=== PATIENT | male | born 1945 | race Caucasian/White ===

== ENCOUNTER → 2019-08-13 11:49 | Outpatient (BNVA) | payer MEDICARE, SELFPAY | PROVIDERS: PCP Nurse Practitioner Family; Referring Provider Nurse Practitioner Family; Visit Provider Orthopaedic Surgery | DX: M25.561 Pain in right knee (principal); M11.262 Other chondrocalcinosis, left knee; M25.461 Effusion, right knee; M17.0 Bilateral primary osteoarthritis of knee | CPT/HCPCS: 73560; 73565 ==

== ENCOUNTER 2019-08-13 15:20 | Outpatient (CLI) | payer MEDICARE, SELFPAY ==
--- NOTE | 2019-08-13 14:45 | USCV_ITS ---
Anuj Pulliam Age: 73 Gender: M : 1945 Exam Date: 08/13/2019 15:49 Ordering Phys: Jay Fernandez DO Technologist: Sue Purvis Exam Location: [facility] [place] Indication: DVT HISTORY: DVT. PROCEDURES: Venous duplex imaging was performed in only the right lower extremity. The following venous structures were evaluated: common femoral vein, profunda vein, proximal portion of the greater saphenous vein, superficial femoral vein, and the popliteal vein. In addition, the posterior tibial and peroneal trunk were evaluated. Serial compression, augmentation maneuvers, and spectral Doppler flow evaluation were performed. FINDINGS: Normal 2-D Doppler and augmentation and compressibility throughout the lower extremity venous structures. Additional imaging through the proximal calf veins also reveals no thrombus. Limited evaluation of the greater saphenous vein is patent with no thrombus. There is a right lower extremity complex Carreon's cyst noted CONCLUSIONS No evidence of right lower extremity DVT. Bakers cyst with internal debris partially visualized measuring3.7 x 2.1cm Raymond Jeter MD (Electronically Signed) Final Date: 13 August 2019 17:11 S
== END 2019-08-13 15:21 | disposition home or self-care (01) ==
LOC: RAD 15:25
PROVIDERS: PCP Nurse Practitioner Family; Visit Provider Orthopaedic Surgery
DX: M79.661 Pain in right lower leg (principal); M71.21 Synovial cyst of popliteal space [Baker], right knee
CPT/HCPCS: 93971

== ENCOUNTER 2019-08-21 11:17 | Outpatient (CLI) | payer MEDICARE, SELFPAY ==
--- NOTE | 2019-08-21 13:45 | MR_ITS ---
WS: [id number] MRI of the right knee, 08/21/2019 Clinical Data: evaluate bakers cyst and internal derangement Comparison: None. Findings: The anterior and posterior cruciate ligaments are intact without tear. The anterior horn of the later al meniscus shows complete degeneration. The posterior horn of lateral meniscus is intact. The business center representative ior horn of the medial meniscus demonstrates a horizontal tear which is at the inferior aspect of the meniscus. The medial and lateral collateral ligaments are intact without strain or tear. There is ca rtilage loss at both the medial and lateral articular surfaces. There is a moderate amount of fluid t hroughout the knee. The quadriceps tendon and patellar tendon show no abnormalities. The patella is i ntact without displacement or chondromalacia. There is a Carreon's cyst and there is fluid which has ex travasated from this cyst. There may be a small leak or rupture. MR/MR knee RT wo con* [id number] Impression: 1. Degeneration of the anterior horn of the lateral meniscus and horizontal te ar of the posterior horn of the medial meniscus 2. Negative for anterior or posterior cruciate ligament tear. 3. Moderate amount of fluid throughout the joint space. 4. Carreon's cyst which shows minimal extravasation of fluid
== END 2019-08-21 11:18 | disposition home or self-care (01) ==
LOC: RADSHAW 11:17
PROVIDERS: PCP Nurse Practitioner Family; Visit Provider Orthopaedic Surgery
DX: M71.21 Synovial cyst of popliteal space [Baker], right knee (principal); S83.241A Other tear of medial meniscus, current injury, right knee, initial encounter; X58.XXXA Exposure to other specified factors, initial encounter
CPT/HCPCS: 73721

== ENCOUNTER 2019-09-07 08:30 | Outpatient (CLI) | payer MEDICARE, SELFPAY ==
--- NOTE | 2019-09-07 08:00 | US_ITS ---
WS: [id number] Scrotal and testicular ultrasound, 09/07/2019 Clinical Data: Bilateral hydrocele Comparison: None. Findings: The right testes measures 5.6 cm x 3.1 cm x 3.4 cm. The left testes measures 6.5 cm x 2.9 cm x 3.4 cm. There is normal bilateral blood flow with no evidence of orchitis or torsion. No masses or abnormal c alcifications are noted. Both epididymides are normal. There are large bilateral hydroceles. US/US scrotum [id number] Impression: 1. Negative testes in epididymitis. 2. Large bilateral hydroceles.
== END 2019-09-07 08:31 | disposition home or self-care (01) ==
LOC: RAD 08:34
PROVIDERS: PCP Nurse Practitioner Family; Visit Provider Urology
DX: N43.3 Hydrocele, unspecified (principal)
CPT/HCPCS: 76870; 81001

== ENCOUNTER → 2019-10-26 08:31 | Outpatient (BNVA) | payer MEDICARE, SELFPAY | PROVIDERS: PCP Nurse Practitioner Family; Visit Provider Orthopaedic Surgery | DX: M25.562 Pain in left knee (principal); M79.661 Pain in right lower leg; M11.262 Other chondrocalcinosis, left knee; M17.12 Unilateral primary osteoarthritis, left knee | CPT/HCPCS: 73562 ==

== ENCOUNTER 2020-02-14 09:44 | Inpatient (IN) | payer MEDICARE, SELFPAY ==
[2020-02-14] VITALS (10 sets, daily range): BP systolic 129–188; BP diastolic 72–93; PULSE 47–64; RESP 16–24; TEMP 36.4–37; O2SAT 91–96; BMI 40.6
--- NOTE | 2020-02-14 10:12 | CT_ITS ---
WS: [id number] CT CHEST ANGIOGRAPHY WITH REFORMATS HISTORY: dysrhythmia TECHNIQUE: Contiguous axial images are obtained through the chest during arterial injection of intrav enous contrast. Images are reconstructed to evaluate the pulmonary arteries. MIP imaging also reviewe d. All CT scans at [facility] use at least one of these dose optimization techniques: aut omated exposure control; mA and/or kV adjustment per patient size (includes targeted exams where dose is matched to clinical indication); or iterative reconstruction. CONTRAST: Omnipaque 350; 95 mL IV. DLP: 2555.55 mGy.cm COMPARISON: 09/20/2015 Adequate opacification of the pulmonary arteries. No filling defects or pulmonary emboli. Normal size aorta with mild atherosclerosis. Prior CABG. Cardiac chambers are slightly enlarged. Extensive nativ e coronary artery calcification. No mediastinal or hilar adenopathy. Benign LEFT upper lobe granuloma. Very mild interstitial thickening bilaterally in the periphery. Chr onic emphysematous changes and interstitial thickening greatest at the lung bases. Very small RIGHT p leural effusion. Mild soft tissue anasarca. Small hiatal hernia. Visualized upper abdominal structures are negative. Gallbladder is incompletely visualized and limite d by body habitus. Thoracic spondylitic changes. CT/CT angio chest PE protcl [id number] IMPRESSION: 1. No pulmonary embolism. 2. Chronic emphysema and mild chronic interstitial fibrosis. 3. No pneumonia. 4. Mild enlargement of the heart chambers and prior CABG.
--- NOTE | 2020-02-14 10:12 | XR_ITS ---
WS: [id number] Portable AP upright chest, 02/14/2020 Clinical Data: dysrhythmia Comparison: PA and lateral chest, 06/28/2018. Findings: No nodules, masses or effusions are seen. The heart is slightly enlarged. The pulmonary vas cularity is not increased. No pneumonia or pneumothorax is seen. Midline sternotomy sutures are prese nt. Monitor leads are on the chest wall. XR/XR chest 1V portable [id number] Impression: Cardiomegaly.
--- NOTE | 2020-02-14 10:13 | ECG_ITS ---
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 Measurements Intervals [place] Rate: 49 P: [place]: -1 QRS: 7 QRSD: 105 T: 32 QT: 451 QTc: 410 Interpretive Statements ATRIAL FIBRILLATION WITH SLOW VENTRICULAR RESPONSE NONSPECIFIC ST & T-WAVE ABNORMALITY ABNORMAL RHYTHM ECG INTERPRETATION BASED ON A DEFAULT AGE OF 40 YEARS Compared to ECG 09/19/2015 17:42:29 T-wave abnormality now present Sinus bradycardia no longer present Electronically Signed On 02-14-2020 17:07:09 CDT by Americo Scott M.D. [id number] f
--- NOTE | 2020-02-14 10:26 | W.ED.SOB ---
HPI - SOB/Dyspnea General: Chief Complaint: Shortness of Breath/Dyspnea Stated Complaint: SOB-sent by PCP Time Seen by Provider: 02/14/20 09:54 History of Present Illness: HPI Narrative: Patient reports shortness of breath going on for 3-4 days. He states that it is worse with any exertion. He also states that it gets worse at night and if he tries to lay supine. MD elicited complaint: shortness of breath Onset (ago): day(s) Context: occurred during exertion Timing: progressively worsening Severity: severe Exacerbating factors: lying flat and exertion Relieving factors: nothing Known history of: diabetes Associated symptoms: Reports orthopnea Treatment prior to arrival: none Review of Systems General: Reports: 10 or more systems reviewed and unremarkable except in HPI and below Card: Reports: orthopnea PFSH ED PFSH: Medical History (Updated 02/14/20 @ 11:44 by Tristan Bhatti DO) Atherosclerotic heart disease of hoh coronary artery without angina pectoris Bilateral hydrocele BPH with obstruction/lower urinary tract symptoms Dyslipidemia (high LDL; low HDL) Elevated PSA History of amputation of finger digit left hand Hypertension Prostatic hemorrhage Type 2 diabetes mellitus Urgency incontinence Ventricular arrhythmia Surgical History History of appendectomy History of arthroscopy of shoulder History of bilateral cataract extraction History of carpal tunnel release of both wrists History of cholecystectomy History of coronary artery bypass graft x 1 History of prostate biopsy History of prostate surgery History of shoulder surgery bilateral History of sinus surgery History of spinal surgery History of transurethral resection of prostate Family History Mother , at age 58 CAD (coronary artery disease) Father , at age 82 Lung cancer Prostate cancer Social History (Updated 02/14/20 @ 10:00 by Wilber Snider RN) Smoking and tobacco status: never smoked Alcohol intake: never Substance/Drug Use: never Marital status: / Current occupational status: retired History of recent travel: No Physical Exam Const: COMMON NORMALS: no acute distress, patient oriented x3, no limitations and alert HENMT: COMMON NORMALS: normocephalic, atraumatic, external ears normal and Normal external nose present HEAD & SCALP: normocephalic and atraumatic FACE & SINUS: normal facial exam NOSE: Normal external nose present EXTERNAL EAR: Yes external ears normal MOUTH: Normal oral and palatal mucosa present Neck/C-Spine: COMMON NORMALS: full ROM, no lymphadenopathy, supple, no meningeal signs and no JVD GENERAL: Yes normal visual inspection Resp: COMMON NORMALS: normal respiratory effort, No retractions, No use of accessory muscles and clear to auscultation bilaterally AUSCULTATION: clear to auscultation bilaterally Cardio: COMMON NORMALS: no JVD, regular rate and regular rhythm RATE: regular rate RHYTHM: regular rhythm GI: COMMON NORMALS: Normal to inspection, nondistended, normoactive bowel sounds present, Soft to palpation, non-tender, No hepatosplenomegaly present and no masses INSPECTION: Yes normal to inspection AUSCULTATION: Yes normoactive bowel sounds PALPATION: Yes Soft to palpation and Yes No hepatosplenomegaly present PERCUSSION: normal to percussion : COMMON NORMALS: Yes no CVA tenderness BLADDER/KIDNEY EXAM: Yes no CVA tenderness Back/Pelvis: COMMON NORMALS: no CVA tenderness, thoracic and lumbar spine normal to inspection, no thoracic nor lumbar tenderness, thoraco-lumbar ROM normal and straight leg raise negative bilaterally Extremity: COMMON NORMALS: normal to inspection, full ROM, capillary refill normal, no joint enlargement, no clubbing, cyanosis or edema, no calf tenderness and no pedal edema Neuro: COMMON NORMALS: patient oriented x3, moves all extremities, no focal motor deficits and no sensory deficits noted SENSORIUM/ORIENTATION: Yes alert MENINGEAL SIGNS: Yes no meningeal signs Psych: COMMON NORMALS: mental status grossly normal, Normal thought process present, cooperative, normal affect and speech normal SPEECH: Yes normal speech THOUGHT PROCESS: Normal thought process present Skin: COMMON NORMALS: no rashes or lesions noted, no wounds, turgor normal, no jaundice, no petechiae and no mottling GENERAL SKIN EXAM: no rashes or lesions noted and turgor normal Course Vital Signs: Vital signs: Vital Signs Temperature 97.7 F 02/14/20 09:50 Pulse Rate 48 L 02/14/20 09:50 Respiratory Rate 18 02/14/20 09:50 Blood Pressure 129/75 02/14/20 09:50 Pulse Oximetry 95 02/14/20 10:00 MDM - SOB/Dyspnea Lab Data: Labs: Lab Results 02/14/20 02/14/20 02/14/20 Range/Units 10:07 10:07 10:07 WBC 5.7 (4.0-10.0) 10^3/ uL RBC 4.30 (4.1-5.3) 10^6/u L Hgb 13.4 (11.7-16.6) g/dL Hct 42.5 (42.0-52.0) % MCV 98.8 H (80-94) fL MCH 31.2 (28.0-34.0) pg MCHC 31.5 (30.0-36.0) g/dL RDW 14.1 (12.1-15.1) % Plt Count 99 L (130-400) 10^3/c mm MPV 9.6 (7.4-10.4) fL Neut % (Auto) 74.0 % Lymph % (Auto) 16.3 % [place] % (Auto) 7.4 % Eos % (Auto) 1.2 % Baso % (Auto) 0.4 % Neut # (Auto) 4.18 (1.8-7.7) 10^3/u L Lymph # (Auto) 0.9 (0.8-4.8) 10^3/u L [place] # (Auto) 0.4 (0.2-0.9) 10^3/u L Eos # (Auto) 0.1 (0.0-0.8) 10^3/u L Baso # (Auto) 0.0 (0.0-0.1) 10^3/u L Nucleated RBC % (a uto) 0 % Nucleated RBCs # 0.0 /100WBC Sodium 139 (136-145) mmol/L Potassium 4.7 (3.5-5.1) mmol/L Chloride 105 (98-107) mmol/L Carbon Dioxide 26 (22-29) mmol/L Anion Gap 12.7 (5-19) BUN 22 (8-23) mg/dL Creatinine 0.9 (0.7-1.2) mg/dL GFR Calculation Not Reportable Glucose 125 H (65-115) mg/dL Calculated Osmolal ity 286 (285-295) mOsm/k g Calcium 9.6 (8.5-10.5) mg/dL Total Bilirubin 0.9 (0.15-1.2) mg/dL AST 19 (0-40) U/L ALT 23 (0-41) U/L Alkaline Phosphata se 46 (40-130) IU/L Troponin T Baselin e 12 (0-15) ng/L NT-Pro-B Natriuret Pep 844 H (0-125) pg/mL Total Protein 6.4 L (6.6-8.7) g/dL Albumin 4.7 (3.5-5.2) g/dL Globulin 1.7 (1.3-4.6) g/dL Discharge Plan Discharge Patient Disposition: Admitted As Inpatient Clinical Impression: Acute dyspnea, Bradycardia Congestive heart failure Qualifiers: Heart failure type: unspecified Heart failure chronicity: acute Qualified Code(s): I50.9 - Heart failure, unspecified Condition: Fair Referrals: Kristen Perez FNP [Primary Care Provider] - Coding Level of Care Code ED Leasing Professional for [facility] Fwd Exam Comprehensive
[2020-02-14 10:31] LABS: Basophils % 0.4 %; Eosinophils # 0.1 10^3/uL (0.0-0.8); Eosinophils % 1.2 %; Hematocrit 42.5 % (42.0-52.0); Hemoglobin 13.4 g/dL (11.7-16.6); Lymphocytes # 0.9 10^3/uL (0.8-4.8); Lymphocytes % 16.3 %; Mean Corpuscular HGB Conc 31.5 g/dL (30.0-36.0); Mean Corpuscular Hemoglobin 31.2 pg (28.0-34.0); Mean Corpuscular Volume 98.8 fL (80-94); Mean Platelet Volume 9.6 fL (7.4-10.4); Monocytes # 0.4 10^3/uL (0.2-0.9); Monocytes % 7.4 %; Neutrophils # 4.18 10^3/uL (1.8-7.7); Nucleated Red Blood Cells % 0 %; Platelet Count 99 10^3/cmm (130-400); Red Cell Distribution Width 14.1 % (12.1-15.1); White Blood Count 5.7 10^3/uL (4.0-10.0)
[2020-02-14 10:42] LABS: Troponin(5th) Baseline 12 ng/L (0-15)
[2020-02-14 10:50] LABS: Alanine Aminotransferase 23 U/L (0-41); Albumin Level 4.7 g/dL (3.5-5.2); Alkaline Phosphatase 46 IU/L (40-130); Anion Gap 12.7 (5-19); Aspartate Amino Transferase 19 U/L (0-40); Blood Urea Nitrogen 22 mg/dL (8-23); Calcium 9.6 mg/dL (8.5-10.5); Carbon Dioxide 26 mmol/L (22-29); Chloride 105 mmol/L (98-107); Globulin 1.7 g/dL (1.3-4.6); Glucose 125 mg/dL (65-115); NT Pro B Type Natriuretic Pept 844 pg/mL (0-125); Osmolality Calculated 286 mOsm/kg (285-295); Potassium 4.7 mmol/L (3.5-5.1); Sodium 139 mmol/L (136-145); Total Bilirubin 0.9 mg/dL (0.15-1.2); Total Protein 6.4 g/dL (6.6-8.7)
[2020-02-14] MEDS: iohexol 350 mg/mL 100 mL Btl 95 ML IV (11:12)
[2020-02-14] MEDS: iohexol 350 mg/mL 100 mL Btl IV (11:15)
--- NOTE | 2020-02-14 12:13 | ECG_ITS ---
[facility] Test Date: 2020-02-14 Pat Name: Anuj Pulliam Department: Room: Gender: Male Admissions Coordinator: : 1945 Requested By: Tristan Hair Order Number: [id number] Corby MD: Americo Scott M.D. Measurements Intervals [place] Rate: 51 P: [place]: -1 QRS: 18 QRSD: 98 T: 52 QT: 471 QTc: 435 Interpretive Statements ATRIAL FIBRILLATION WITH SLOW VENTRICULAR RESPONSE NONSPECIFIC ST & T-WAVE ABNORMALITY ABNORMAL RHYTHM ECG Compared to ECG 02/14/2020 10:05:42 No significant changes Electronically Signed On 02-14-2020 17:11:33 CDT by Americo Scott M.D. [id number]
--- NOTE | 2020-02-14 12:23 | P.CONIM_ITS ---
Providers/Reason For Consult Consulting Physican/Specialty*: Cardiology Reason for Consult*: Bradycardia Shortness of breath Decompensated heart failure unspecified Primary Care Provider: NOHELIA Patel History of Present Illness History of Present Illness Anuj Pulliam is a 74 year old male past medical history significant for quad ruple bypass 30 years ago no angiogram after that, history of obesity, history of hypertension, hyperlipidemia patient of Dr. Aldrich last visit was through tele couple of months ago came to the hospital with shortness of breath upon walking PND orthopnea and lower extremity edema 1+. Patient also appear to have abdominal wall edema. He was also noted to have slow heart rate into 40s and sometimes dipped down to 30. He was also noted to have Mobitz type I heart block while awake. Patient is on beta-andreea and antianginal medicine. According to him before moving to Dr. Aldrich service he used to perform stress test in [place] every year since he is not symptomatic he has not done any test in the last couple of years. Recently he has been noticing that he is struggling with fatigue and shortness of breath upon walking. 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 His daughter is experienced traveling nurse. I had a chance to talk to her daughter I explained to her that we will be admitting Mr. Leslie and discussed in detail regarding his treatment she expressed agreement to it. Review of Systems General: Reports: 10 or more systems reviewed and unremarkable except in HPI and below Card: Reports: dyspnea on exertion and orthopnea Meds/Allergies Home Medications and Allergies Home Medications Medication Instructions Recorded Confirmed Last Taken Type amlodipine 5 mg tablet 5 mg PO DAILY 08/13/19 02/14/20 02/13/20 History aspirin 325 mg tablet 325 mg PO DAILY 08/13/19 02/14/20 02/14/20 History atorvastatin 80 mg tablet 80 mg PO BEDTIME 08/13/19 02/14/20 02/13/20 History citalopram 20 mg tablet 20 mg PO DAILY 08/13/19 02/14/20 02/14/20 History finasteride 5 mg tablet 5 mg PO DAILY 08/13/19 02/14/20 02/14/20 History garlic 500 mg capsule 1,000 mg PO BID 08/13/19 02/14/20 02/14/20 History glimepiride 2 mg tablet 2 mg PO DAILY 08/13/19 02/14/20 02/14/20 History losartan 100 mg tablet 100 mg PO DAILY 08/13/19 02/14/20 02/13/20 History meloxicam 15 mg tablet 15 mg PO DAILY 08/13/19 02/14/20 02/13/20 History metformin 850 mg tablet 850 mg PO BID 08/13/19 02/14/20 02/14/20 History omega 4-vcu-gfm-fish oil 1,000 mg 1 cap PO BID cap 08/13/19 02/14/20 02/14/20 History (120 mg-180 mg) capsule metoprolol tartrate 50 mg tablet 50 mg PO BID tab 11/01/19 02/14/20 02/14/20 History oxybutynin chloride 5 mg tablet 5 mg PO BID #60 tab 01/08/20 02/14/20 02/13/20 Rx tamsulosin 0.4 mg capsule 0.8 mg PO DAILY cap 01/08/20 02/14/20 02/13/20 History Weight Control 1 tab PO DAILY 02/14/20 02/14/20 02/14/20 History cyanocobalamin (vitamin B-12) 1,000 mcg PO DAILY 02/14/20 02/14/20 02/14/20 History [Vitamin B-12] diphenhydramine-acetaminophen 1 tab PO BEDTIME 02/14/20 02/14/20 02/13/20 History [Pain Relief PM] loratadine [Claritin] 10 mg PO DAILY 02/14/20 02/14/20 02/14/20 History melatonin 10 mg PO BEDTIME 02/14/20 02/14/20 02/13/20 History vitamin E 1,000 unit PO DAILY 02/14/20 02/14/20 02/14/20 History Allergies Allergy/AdvReac Type Severity Reaction Status Date / Time morphine Allergy Unknown Verified 02/14/20 10:32 PFSH Acute PFSH: Medical History Atherosclerotic heart disease of lummi coronary artery without angina pectoris Bilateral hydrocele BPH with obstruction/lower urinary tract symptoms Dyslipidemia (high LDL; low HDL) Elevated PSA History of amputation of finger digit left hand Hypertension Prostatic hemorrhage Type 2 diabetes mellitus Urgency incontinence Ventricular arrhythmia Surgical History History of appendectomy History of arthroscopy of shoulder History of bilateral cataract extraction History of carpal tunnel release of both wrists History of cholecystectomy History of coronary artery bypass graft x 1 History of prostate biopsy History of prostate surgery History of shoulder surgery bilateral History of sinus surgery History of spinal surgery History of transurethral resection of prostate Family History Mother , at age 58 CAD (coronary artery disease) Father , at age 82 Lung cancer Prostate cancer Social History Smoking and tobacco status: never smoked Alcohol intake: never Substance/Drug Use: never Marital status: / Current occupational status: retired History of recent travel: No Dietary Habits: Current diet type/program: regular During the past year weight has: remained stable Vitals/I&O/Wt Last Vital Signs Temp 97.7 F 02/14/20 09:50 Pulse 52 L 02/14/20 11:47 Resp 16 02/14/20 11:47 BP 133/84 02/14/20 11:47 Pulse Ox 95 02/14/20 11:47 Weight last 48 hrs Weight 300 lb Physical Exam Narrative: EXAM NARRATIVE: GENERAL: Patient is alert, awake and oriented x3. NECK: No jugular vein distension. HEENT: No cyanosis. No icterus. No pallor. HEART: Irregular S1 and S2. No murmur, rub or gallop. LUNGS: Clear to auscultate bilaterally. ABDOMEN: Soft, nontender and nondistended. Positive bowel. Abdominal wall edema sounds. No guarding, rebound or tenderness. CENTRAL NERVOUS SYSTEM: Grossly nonfocal. EXTREMITIES: Lower extremities with 1+ edema bilaterally. A&P Assessment and plan (1) Bradycardia: I will hold metoprolol and watch him over next 48 hours to see whether he improves heart rate fierro. He will be diuresed for heart failure. TSH will be asked to rule out hypothyroidism. Once we rule out reversible causes for significant bradycardia and if he still remains bradycardic this mean he has a conduction abnormality may requiring pacemaker. We will also rule out ischemia by stress test. Status: Acute (2) Congestive heart failure: Patient appeared to be in decompensated heart failure I will start Lasix IV 40 mg twice daily. Goal is -1.5 L. Patient has gained 8 to 10 pounds.. I will ask for echocardiogram to assess LV function and valvular regurgitation along with pulmonary hypertension Status: Acute Qualifiers: Heart failure chronicity: acute Heart failure type: unspecified Qualified Code(s): I50.9 - Heart failure, unspecified (3) Atherosclerotic heart disease of lummi coronary artery without angina pectoris: We will be trending up his cardiac markers. He will be ruled out for acute coronary syndrome. Will ask for stress test to rule out ischemia he has history of quadruple bypass 30 years ago Status: Acute Qualifiers: [place] vs. transplanted heart: lummi heart Qualified Code(s): I25.10 - Atherosclerotic heart disease of lummi coronary artery without angina pectoris (4) Type 2 diabetes mellitus: As per medicine. Status: Acute Qualifiers: Diabetes mellitus jail insulin use: without jail use Diabetes mellitus complication status: with hyperglycemia Qualified Code(s): E11.65 - Type 2 diabetes mellitus with hyperglycemia (5) Hypertension: Currently well controlled. Status: Acute Qualifiers: Hypertension type: essential hypertension Qualified Code(s): I10 - Essential (primary) hypertension Coding Level of Care Code New Pt Acute Civil Geotechnical Engineer for Chg Fwd Patient Type New History Detailed Exam Detailed Medical Decision Making Moderate Complexity Diagnoses Bradycardia R00.1 Congestive heart failure I50.9 Heart failure chronicity: acute Heart failure type: unspecified Atherosclerotic heart disease of lummi coronary artery without angina pectoris I25.10 [place] vs. 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
--- NOTE | 2020-02-14 12:41 | USCV_ITS ---
Anuj Pulliam Age: 74 Gender: M : 1945 Exam Date: 02/14/2020 14:40 Ordering Phys: Colette Barkley MD ([email or web address]) Technologist: Cheyenne Law Exam Location: [facility] [place] Indication: CHEST PAIN BP: / HR: 47 Rhythm: Other Technical Quality: Adequate MEASUREMENTS (Male / Female) Normal Values 2D ECHO LV Diastolic Diameter PLAX 4.4 cm 4.2 - 5.9 / 3.9 - 5.3 cm LV Systolic Diameter PLAX 2.9 cm LV Chamber Size 3.3 cm IVS Diastolic Thickness 1.4 cm 0.6 - 1.0 / 0.6 - 0.9 cm IVS Systolic Thickness 1.6 cm LVPW Diastolic Thickness 1.2 cm 0.6 - 1.0 / 0.6 - 0.9 cm LVPW Systolic Thickness 1.6 cm RV Chamber Size 2.0 cm LVOT Diameter 2.1 cm LV Ejection Fraction 2D Teich 64.0 % LV Ejection Fraction MOD 2C 59.9 % LV Ejection Fraction 2C AL 64.1 % LA Diameter 5.5 cm LA Width 4.8 cm LA Height 5.4 cm RA Width 4.2 cm RA Height 4.8 cm Aorta at Sinotubular Diameter 3.5 cm M-MODE LV Diastolic Diameter MM 6.7 cm 4.2 - 5.9 / 3.9 - 5.3 cm LV Systolic Diameter MM 5.9 cm LV Ejection Fraction MM Teich 26.0 % IVS Diastolic Thickness MM 2.0 cm 0.6 - 1.0 / 0.6 - 0.9 cm IVS Systolic Thickness MM 2.4 cm LVPW Diastolic Thickness MM 1.6 cm 0.6 - 1.0 / 0.6 - 0.9 cm LVPW Systolic Thickness MM 2.8 cm RV Diastolic Diameter MM 1.9 cm Aortic Annulus Diameter 3.4 cm LA Ao Ratio MM 1.6 MV E Point Septal Separation 0.9 cm DOPPLER AV Peak Velocity 95.0 cm/s LVOT Peak Velocity 64.0 cm/s AV Area Cont Eq vti 2.1 cm squared AV Area Cont Eq pk 2.2 cm squared MV Area PHT 5.0 cm squared MV E' Velocity 12.0 cm/s Mitral E to MV E' Ratio 8.2 Mitral E to LV E' Lateral Ratio 8.1 Mitral E to LV E' Septal Ratio 8.3 TR Peak Velocity 293.4 cm/s TR Peak Gradient 34.4 mmHg TR Mean Velocity 230.9 cm/s TR Mean Gradient 23.0 mmHg TR Velocity Time Integral 118.3 cm TV Peak E Velocity 77.0 cm/s Right Atrial Pressure 3.0 mmHg Pulmonary Artery Systolic Pressu 37.4 mmHg PV Peak Velocity 63.0 cm/s RV Acceleration Time 0.1 s RV Ejection Time 0.4 s RV AcT/ET 0.4 FINDINGS Left Ventricle Normal left ventricular cavity size. Normal left ventricular systolic function. No regional wall motion abnormalities. Left ventricular ejection fraction is estimated at 60 %. In the presence of atrial fibrillation diastolic function cannot be assessed accurately Right Ventricle The right ventricle is normal in size and function. Right Atrium The right atrium is normal in size. Left Atrium The left atrium is normal in size. Mitral Valve Moderately thickened mitral valve. Moderate mitral annular calcification. No mitral valve stenosis. No mitral valve regurgitation. Aortic Valve Moderate aortic valve calcification. No aortic valve stenosis. No aortic valve regurgitation. Tricuspid Valve Structurally normal tricuspid valve without significant stenosis or regurgitation. Pulmonary artery systolic pressure is normal. Pulmonic Valve Structurally normal pulmonic valve without significant stenosis. There is no pulmonic regurgitation. Pericardium Normal pericardium without effusion. Aorta Normal ascending aorta dimension. CONCLUSIONS 1-Normal left ventricular cavity size. Normal left ventricular systolic function. No regional wall motion abnormalities. Left ventricular ejection fraction is estimated at 60 %. In the presence of atrial fibrillation diastolic function cannot be assessed accurately. 2-There is no pericardial effusion. 3-No significant valve abnormalities. 4-Pulmonary artery systolic pressure is within normal limits. 5-Right atrial pressure is around 5 mm of mercury. 6-There are no prior echocardiogram studies to compare. Colette Barkley MD (Electronically Signed) Final Date: 14 February 2020 19:58 S
[2020-02-14 12:46] LABS: Troponin 5 2HR 12.08 ng/L (0-15); Troponin 5 2HR Delta 0.08 ABS# (0-10)
--- NOTE | 2020-02-14 13:42 | PC.NURSE ---
pt up to bathroom at this time; pt to change into gown when returns.
--- NOTE | 2020-02-14 14:14 | PC.NURSE ---
portable ultrasound at bedside for echocardiogram
--- NOTE | 2020-02-14 14:15 | PC.NURSE ---
pt's room air saturation 89%. Per verbal order of Dr. Duenas pt placed on 2L supplemental oxygen via nasal cannula
--- NOTE | 2020-02-14 14:56 | PM.HP ---
Providers/Chief Complaint Primary Care Provider: NOHELIA Patel Chief Complaint: SOB History of Present Illness Anuj Pulliam is a 74 year old male presents emergency department with shortness of breath since Tuesday. Reports that Tuesday he felt better but next day worsened again and went to see his primary care physician. After evaluation he was referred to ER. Reports that over the last several days he would wake up frequently in the middle of the night short of breath and sitting upright or laying in the recliner would alleviate his breathing. He denies lower extremity swelling but does have trace edema on exam with slightly more on the left. He denies chest pain or abdominal pain. On review of system he only reports occasional dysuria but otherwise he has been doing well. He is diabetic for the last 9 to 10 years and had coronary artery disease requiring four-vessel CABG in 1992. He has been doing okay since then. Reports that initially he was on 25 mg twice daily of metoprolol but this was changed to 50 mg twice daily. In emergency department he was noted to be bradycardic at times down to 30s and cardiology service was consulted. He is being admitted to cardiac stepdown unit for close monitoring and treatment as well as evaluation. I would like to mention that during my evaluation in emergency department patient's oxygen saturation will drop down to 88%. Improved to low 90s on 2 L by nasal cannula. Review of Systems Const: Denies: fever(s) or chills Eyes: Denies: change in vision ENMT: Denies: throat pain or change in hearing Card: Denies: chest pain, edema or lightheadedness Resp: Reports: dyspnea; Denies: productive cough GI: Denies: abdominal pain, nausea, vomiting, dysphagia, diarrhea, constipation, hematochezia or melena Musc: Denies: joint pain or joint swelling Skin/Breast: Denies: rash or erythema Neuro: Denies: headache(s) or weakness in extremities Psych: Denies: depression or suicidal ideation Endo: Denies: excessive sweating Buddy/Lymph: Denies: easy bleeding or tender lymph nodes All/Imm: Denies: throat swelling Medications/Allergies Home Medications Medication Instructions Recorded Confirmed Last Taken Type amlodipine 5 mg tablet 5 mg PO DAILY 08/13/19 02/14/20 02/13/20 History aspirin 325 mg tablet 325 mg PO DAILY 01/02/14/20 02/14/20 History atorvastatin 80 mg tablet 80 mg PO BEDTIME 08/13/19 02/14/20 02/13/20 History citalopram 20 mg tablet 20 mg PO DAILY 08/13/19 02/14/20 02/14/20 History finasteride 5 mg tablet 5 mg PO DAILY 08/13/19 02/14/20 02/14/20 History garlic 500 mg capsule 1,000 mg PO BID 08/13/19 02/14/20 02/14/20 History glimepiride 2 mg tablet 2 mg PO DAILY 08/13/19 02/14/20 02/14/20 History losartan 100 mg tablet 100 mg PO DAILY 08/13/19 02/14/20 02/13/20 History meloxicam 15 mg tablet 15 mg PO DAILY 08/13/19 02/14/20 02/13/20 History metformin 850 mg tablet 850 mg PO BID 08/13/19 02/14/20 02/14/20 History omega 2-xut-fiu-fish oil 1,000 mg 1 cap PO BID cap 08/13/19 02/14/20 02/14/20 History (120 mg-180 mg) capsule metoprolol tartrate 50 mg tablet 50 mg PO BID tab 11/01/19 02/14/20 02/14/20 History oxybutynin chloride 5 mg tablet 5 mg PO BID #60 tab 01/08/20 02/14/20 02/13/20 Rx tamsulosin 0.4 mg capsule 0.8 mg PO DAILY cap 01/08/20 02/14/20 02/13/20 History Weight Control 1 tab PO DAILY 02/14/20 02/14/20 02/14/20 History cyanocobalamin (vitamin B-12) 1,000 mcg PO DAILY 02/14/20 02/14/20 02/14/20 History [Vitamin B-12] diphenhydramine-acetaminophen 1 tab PO BEDTIME 02/14/20 02/14/20 02/13/20 History [Pain Relief PM] loratadine [Claritin] 10 mg PO DAILY 02/14/20 02/14/20 02/14/20 History melatonin 10 mg PO BEDTIME 02/14/20 02/14/20 02/13/20 History vitamin E 1,000 unit PO DAILY 02/14/20 02/14/20 02/14/20 History Allergies Allergy/AdvReac Type Severity Reaction Status Date / Time morphine Allergy Unknown Verified 02/14/20 10:32 PFSH Acute PFSH: Medical History Atherosclerotic heart disease of [place] coronary artery without angina pectoris Bilateral hydrocele BPH with obstruction/lower urinary tract symptoms Dyslipidemia (high LDL; low HDL) Elevated PSA History of amputation of finger digit left hand Hypertension Prostatic hemorrhage Type 2 diabetes mellitus Urgency incontinence Ventricular arrhythmia Surgical History History of appendectomy History of arthroscopy of shoulder History of bilateral cataract extraction History of carpal tunnel release of both wrists History of cholecystectomy History of coronary artery bypass graft x 1 History of prostate biopsy History of prostate surgery History of shoulder surgery bilateral History of sinus surgery History of spinal surgery History of transurethral resection of prostate Family History Mother , at age 58 CAD (coronary artery disease) Father , at age 82 Lung cancer Prostate cancer Social History Smoking and tobacco status: never smoked Alcohol intake: never Substance/Drug Use: never Marital status: / Current occupational status: retired History of recent travel: No Vitals/I&O/Wt Last Vital Signs Temp 97.7 F 02/14/20 09:50 Pulse 49 L 02/14/20 13:53 Resp 16 02/14/20 13:53 BP 157/81 02/14/20 13:53 Pulse Ox 91 02/14/20 13:53 Weight last 48 hrs Weight 136.078 kg Physical Exam Const: COMMON NORMALS: no acute distress, patient oriented x3 and alert HENMT: COMMON NORMALS: normocephalic and atraumatic HEAD & SCALP: normocephalic and atraumatic Eye: COMMON NORMALS: EOMs intact bilaterally, conjunctivae normal and no scleral icterus CONJUNCTIVA: Yes conjunctivae normal Neck/C-Spine: COMMON NORMALS: no lymphadenopathy and no meningeal signs Lymph: LYMPHATIC: no lymphadenopathy noted Chest: COMMONS NORMALS: normal palpation of entire chest wall Resp: COMMON NORMALS: No use of accessory muscles and clear to auscultation bilaterally AUSCULTATION: clear to auscultation bilaterally Cardio: COMMON NORMALS: regular rate, regular rhythm and No murmurs present (Cardio) RATE: regular rate and bradycardic RHYTHM: regular rhythm OTHER: Trace lower extremity edema GI: COMMON NORMALS: Soft to palpation and non-tender PALPATION: Yes Soft to palpation RECTAL EXAM: Yes deferred : COMMON NORMALS: Yes no CVA tenderness BLADDER/KIDNEY EXAM: Yes no CVA tenderness Back/Pelvis: COMMON NORMALS: no CVA tenderness and thoracic and lumbar spine normal to inspection Extremity: COMMON NORMALS: normal to inspection and capillary refill normal Neuro: COMMON NORMALS: patient oriented x3 and no focal motor deficits SENSORIUM/ORIENTATION: Yes alert MENINGEAL SIGNS: Yes no meningeal signs Psych: COMMON NORMALS: mental status grossly normal, Normal thought process present and cooperative THOUGHT PROCESS: Normal thought process present Skin: COMMON NORMALS: no rashes or lesions noted GENERAL SKIN EXAM: no rashes or lesions noted Data : 02/14/20 10:07 02/14/20 10:07 A&P Assessment and plan (1) Bradycardia: Status: Acute (2) Congestive heart failure: Appears in mild decompensation. Specifics unknown at this point. Awaiting echocardiogram. Status: Acute Qualifiers: Heart failure chronicity: acute Heart failure type: unspecified Qualified Code(s): I50.9 - Heart failure, unspecified (3) Type 2 diabetes mellitus: Status: Acute Qualifiers: Diabetes mellitus complication status: with hyperglycemia Diabetes mellitus fdc insulin use: without exterminator use Qualified Code(s): E11.65 - Type 2 diabetes mellitus with hyperglycemia (4) BPH with obstruction/lower urinary tract symptoms: Status: Acute (5) Dyslipidemia (high LDL; low HDL): Status: Acute (6) Atherosclerotic heart disease of [place] coronary artery without angina pectoris: Status: Acute Qualifiers: [place] vs. transplanted heart: [place] heart Qualified Code(s): I25.10 - Atherosclerotic heart disease of [place] coronary artery without angina pectoris (7) Hypertension: Status: Acute Qualifiers: Hypertension type: essential hypertension Qualified Code(s): I10 - Essential (primary) hypertension (8) Thrombocytopenia: Status: Acute (9) Dysuria: Status: Acute (10) Respiratory failure with hypoxia: Status: Acute Additional A&P Information Hold metoprolol and continue monitoring at the cardiac stepdown unit. Awaiting echocardiogram and check bilateral lower extremity venous ultrasound. Supplemental oxygen to keep sats above 92% Obtain UA to rule out UTI Continue Lasix. Appreciate Dr. Belle's help Attestations Medical Necessity Statement*: Patient with symptomatic bradycardia requires close inpatient monitoring, treatment and evaluation. I expect patient will require more than 2 midnights. Time Spent in Patient Care: Greater than 35 minutes Coding Level of Care Code Acute Rotary Drill Operator Helper for g Fwd Exam Comprehensive Diagnoses Bradycardia R00.1 Congestive heart failure I50.9 Heart failure chronicity: acute Heart failure type: unspecified Type 2 diabetes mellitus E11.65 Diabetes mellitus complication status: with hyperglycemia Diabetes mellitus fdc insulin use: without fdc use BPH with obstruction/lower urinary tract symptoms N40.1; N13.8 Dyslipidemia (high LDL; low HDL) E78.5 Atherosclerotic heart disease of [place] coronary artery without angina pectoris I25.10 [place] vs. transplanted heart: [place] heart Hypertension I10 Hypertension type: essential hypertension Thrombocytopenia D69.6 Dysuria R30.0 Respiratory failure with hypoxia J96.91
--- NOTE | 2020-02-14 14:57 | USCV_ITS ---
Anuj Pulliam Age: 74 Gender: M : 1945 Exam Date: 02/14/2020 15:09 Ordering Phys: Robert Duenas MD Technologist: Cheyenne Law [place] [facility] [place]: SWOLLEN LEGS HISTORY: Swollen Legs PROCEDURES: The venous duplex Doppler examination of both lower extremities was performed in the standard fashion. The following venous structures were evaluated: common femoral vein, profunda vein, proximal portion of the greater saphenous vein, superficial femoral vein, and the popliteal vein. In addition, the posterior tibial and peroneal trunk were evaluated. Serial compression, augmentation maneuvers, and spectral Doppler flow evaluation were performed. FINDINGS: No DVT seen in any vessel examined CONCLUSIONS Negative bilateral lower extremit deep venous ultrasound. Carreon's cyst. Dr. Kristen Sabillon MD (Electronically Signed) Final Date: 14 February 2020 15:38 S
--- NOTE | 2020-02-14 16:13 | ECG_ITS ---
[facility] Test Date: 2020-02-14 Pat Name: Anuj Pulliam Department: Room: 103 Gender: Male Cell Operator: : 1945 Requested By: Tristan Hair Order Number: [id number] Corby MD: Americo Scott M.D. Measurements Intervals [place] Rate: 55 P: TN: -1 QRS: 14 QRSD: 98 T: 30 QT: 470 QTc: 450 Interpretive Statements ATRIAL FIBRILLATION WITH SLOW VENTRICULAR RESPONSE MODERATE ST DEPRESSION [0.05+ mV ST DEPRESSION] Compared to ECG 02/14/2020 12:21:01 ST (T wave) deviation now present T-wave abnormality no longer present Electronically Signed On 02-14-2020 17:12:52 CDT by Americo Scott M.D. [id number]
[2020-02-14 16:46] LABS: Troponin 5 6HR 12.17 ng/L (0-15); Troponin 5 6HR Delta 0.17 ng/L (0-12)
[2020-02-14] MEDS: enoxaparin 40 mg/0.4 mL Syringe SUBCUT (18:03)
[2020-02-14] MEDS: potassium chloride oral liq 20 mEq/15 mL UDC PO (18:36)
[2020-02-14] MEDS: FUROsemide 10 mg/mL SDV 4mL 40 MG IVP (18:36)
--- NOTE | 2020-02-14 19:44 | PC.NURSE ---
Received report from Nika Contreras RN. Patient resting in bed watching tv. Discussed use of lasix and the holding of his beta-blockers for now. Patient verbalized understanding. Denies needs or discomforts. No distress observed.
[2020-02-14 20:45] LABS: Add Urine Microscopic? NO
[2020-02-14 20:46] LABS: Bilirubin Urine Neg (NEGATIVE); Blood Urine Neg (Negative); Glucose Urine UA Norm (Normal); Ketones Urine Negative (Negative); Leukocyte Esterase Urine Negative (Negative); Nitrate Urine Negative (Negative); Protein Urine Neg (Negative); Urine Appearance Clear (CLEAR); Urine Color Yellow (Yellow); Urobilinogen Urine Norm (Negative); pH Urine 5 (5-7)
--- NOTE | 2020-02-14 20:52 | PC.NURSE ---
Patient requesting something to help with sleep. Patient takes melatonin or 2 Tylenol PM at home nightly. Called Dr Almanzar and received telephone order for Benadryl 50mg PO HS for sleep. Read back and verified.
[2020-02-14] MEDS: diphenhydrAMINE 50 mg Capsule PO (21:32)
[2020-02-15] VITALS: BP 129/65; PULSE 56; RESP 21; TEMP 36.7; O2SAT 91
[2020-02-15 00:27] LABS: Thyroid Stimulating Hormone 2.94 uIU/mL (0.27-4.20)
--- NOTE | 2020-02-15 00:36 | PC.NURSE ---
Patient still c/o no sleep. Called Dr Almanzar and received order for Trazadone 50mg PO ONCE. Read back and verified order.
[2020-02-15] MEDS: trazodone 50 mg Tablet PO (00:49)
[2020-02-15 04:00] VITALS: BP 132/66; PULSE 55; RESP 15; TEMP 36.8; O2SAT 92
[2020-02-15 05:20] LABS: Basophils % 0.5 %; Eosinophils # 0.1 10^3/uL (0.0-0.8); Eosinophils % 1.7 %; Hematocrit 40.2 % (42.0-52.0); Lymphocytes # 1.2 10^3/uL (0.8-4.8); Lymphocytes % 18.4 %; Mean Corpuscular HGB Conc 32.3 g/dL (30.0-36.0); Mean Corpuscular Hemoglobin 32.1 pg (28.0-34.0); Mean Corpuscular Volume 99.3 fL (80-94); Mean Platelet Volume 9.6 fL (7.4-10.4); Monocytes # 0.5 10^3/uL (0.2-0.9); Monocytes % 8.1 %; Neutrophils # 4.59 10^3/uL (1.8-7.7); Neutrophils % 70.5 %; Nucleated Red Blood Cells % 0 %; Platelet Count 100 10^3/cmm (130-400); Red Blood Count 4.05 10^6/uL (4.1-5.3); Red Cell Distribution Width 14.1 % (12.1-15.1); White Blood Count 6.5 10^3/uL (4.0-10.0)
[2020-02-15] MEDS: FUROsemide 10 mg/mL SDV 4mL 40 MG IVP ×2 (05:26→18:13)
[2020-02-15 05:45] LABS: Alanine Aminotransferase 22 U/L (0-41); Albumin Level 4.3 g/dL (3.5-5.2); Alkaline Phosphatase 48 IU/L (40-130); Anion Gap 15.2 (5-19); Aspartate Amino Transferase 20 U/L (0-40); Blood Urea Nitrogen 21 mg/dL (8-23); Calcium 9.9 mg/dL (8.5-10.5); Carbon Dioxide 25 mmol/L (22-29); Chloride 103 mmol/L (98-107); Glucose 108 mg/dL (65-115); Magnesium 2.1 mg/dL (1.7-2.3); Osmolality Calculated 285 mOsm/kg (285-295); Potassium 4.2 mmol/L (3.5-5.1); Sodium 139 mmol/L (136-145); Total Bilirubin 1.6 mg/dL (0.15-1.2); Total Protein 6.3 g/dL (6.6-8.7)
[2020-02-15 05:53] LABS: NT Pro B Type Natriuretic Pept 951 pg/mL (0-125)
[2020-02-15 06:48] LABS: Glucose Point of Care 133 mg/dL (70-110)
[2020-02-15] MEDS: potassium chloride oral liq 20 mEq/15 mL UDC PO ×2 (08:34→18:13)
[2020-02-15 08:36] VITALS: BP 132/66; PULSE 67; RESP 17; O2SAT 95
--- NOTE | 2020-02-15 09:41 | PC.CHAP ---
Pastoral Care Encounter/Spiritual Assessment Type of Contact [] Declined soda fountain operator visit [] Patient/Family/Request visit [] Outpatient visit [] Follow-up visit [] Physician referral [] Code/Alert [x] Routine visit [] Staff referral [] Actively dying [] Patient sleeping [] Family support [] [] Out of room [] Palliative care [] [] Receiving care in room [] Pre-surgical visit [] Trauma [] Long length of stay [] ICU visit [] Other: Relational/Emotional Strength [] Patient feels connected with others/family/visitors/staff [] Distress [] Loneliness/isolation [] Abandonment Spirituality of Patient [] Person of [place] [] Attends Advent of their [place] [] Believes in Prayer [] Reads Bible or Bahai materials [] There are Spiritual issues to be addressed Drapery And 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 Interventions [x] Prayer [x] Active listening [x] Non-anxious presence [x] Spiritual/emotional support [] Crisis/trauma care [] Spiritual counseling [] Bereavement support [] Provided bereavement packet [] Provided Bible/devotional materials [] Provided toy/stuffed animal, coloring book to patient or family member [] Provided Communion [] Anointing/[place] [] Salvation [x] Completed spiritual assessment [] Other: Impact on Illness or Injury [] Angry [] Fearful [] Anxious [] Often cries [] Exhaustion [] Unable to work [] Unable to attend moravian [] Unable to walk/stand [] Unable to read [] Unable to drive [] Unable to eat/drink [] Unable to sleep [] Unable to be with family [] Patient intubated [] Other: Summary patient feeling better Time spent with patient 10 min
--- NOTE | 2020-02-15 10:10 | PM.PN ---
Subjective Subjective: Interval history: Patient reports feeling much better. His heart rate improved and this morning has been in 60s. Denies shortness of breath or chest pain. Patient reports that he was seen by Dr. Morton this morning with plan to continue monitoring. Echocardiogram shows normal EF and venous ultrasound no evidence of DVT. 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 Patient denies abdominal pain Vitals/I&O/Wt Last Vital Signs Temp 98.2 F 02/15/20 04:00 Pulse 67 02/15/20 08:36 Resp 17 02/15/20 08:36 BP 132/66 02/15/20 08:36 Pulse Ox 95 02/15/20 08:36 02/14/20 02/15/20 02/15/20 22:59 06:59 14:59 Intake Total 480 / 480 360 / 360 Output Total 2501 / 2501 2800 / 5301 875 / 875 Balance -2020 / -202 -2800 / -4821 -515 / -515 Weight last 48 hrs Weight 135.624 kg Weight 136.078 kg Physical Exam Const: COMMON NORMALS: no acute distress and patient oriented x3 Resp: COMMON NORMALS: normal respiratory effort and clear to auscultation bilaterally AUSCULTATION: clear to auscultation bilaterally Cardio: COMMON NORMALS: S2 normal heart sound present RHYTHM: abnormal rhythm irregularly irregular HEART SOUNDS: S2 normal heart sound present OTHER: No lower extremity edema GI: COMMON NORMALS: Normal to inspection, nondistended, normoactive bowel sounds present, Soft to palpation and non-tender PALPATION: Yes Soft to palpation Neuro: COMMON NORMALS: patient oriented x3 and no focal motor deficits Data : 02/15/20 04:20 02/15/20 04:20 A&P Assessment and plan (1) Bradycardia: Appears to be medication induced. Status: Acute (2) Congestive heart failure: Appears in mild decompensation. Specifics unknown at this point. Awaiting echocardiogram. Status: Acute Qualifiers: Heart failure chronicity: acute Heart failure type: unspecified Qualified Code(s): I50.9 - Heart failure, unspecified (3) Type 2 diabetes mellitus: Status: Acute Qualifiers: Diabetes mellitus complication status: with hyperglycemia Diabetes mellitus principal engineer insulin use: without principal engineer use Qualified Code(s): E11.65 - Type 2 diabetes mellitus with hyperglycemia (4) BPH with obstruction/lower urinary tract symptoms: Status: Acute (5) Dyslipidemia (high LDL; low HDL): Status: Acute (6) Atherosclerotic heart disease of [place] coronary artery without angina pectoris: Status: Acute Qualifiers: [place] vs. transplanted heart: [place] heart Qualified Code(s): I25.10 - Atherosclerotic heart disease of [place] coronary artery without angina pectoris (7) Hypertension: Status: Acute Qualifiers: Hypertension type: essential hypertension Qualified Code(s): I10 - Essential (primary) hypertension (8) Thrombocytopenia: Status: Acute (9) Dysuria: Status: Acute (10) Respiratory failure with hypoxia: Status: Acute Additional A&P Information Continue holding metoprolol. Continue Lasix. If continues to improve we will likely be able to dismiss patient home in a day or 2. Attestations Medical Necessity Statement*: Patient with CHF exacerbation and bradycardia requires close inpatient monitoring and treatment for medication adjustment. Time Spent in Patient Care: 16 - 35 minutes Coding Level of Care Code Acute Applications Chemist for [facility] Fwd Exam Detailed Diagnoses Bradycardia R00.1 Congestive heart failure I50.9 Heart failure chronicity: acute Heart failure type: unspecified Type 2 diabetes mellitus E11.65 Diabetes mellitus complication status: with hyperglycemia Diabetes mellitus principal engineer insulin use: without half-way use BPH with obstruction/lower urinary tract symptoms N40.1; N13.8 Dyslipidemia (high LDL; low HDL) E78.5 Atherosclerotic heart disease of [place] coronary artery without angina pectoris I25.10 [place] vs. transplanted heart: [place] heart Hypertension I10 Hypertension type: essential hypertension Thrombocytopenia D69.6 Dysuria R30.0 Respiratory failure with hypoxia J96.91
[2020-02-15] MEDS: acetaminophen 325 mg Tablet 650 MG PO (11:00)
--- NOTE | 2020-02-15 11:03 | PC.NURSE ---
Dr Duenas notified for patient request for Tylenol for a headache. Instruction telephone orders given for Tylenol 650mg PO Q 6 hours PRN for mild pain
--- NOTE | 2020-02-15 16:38 | PC.RESP ---
PATIENT DOES NOT HAVE A QUALIFYING HX OF LUNG DISEASE AND DOES NOT QUALIFY FOR PULMONARY REHAB.
[2020-02-15 17:13] LABS: Glucose Point of Care 121 mg/dL (70-110)
--- NOTE | 2020-02-15 17:53 | PM.PN ---
Subjective Subjective: Interval history: Patient diuresed well overnight he is -4 L. His breathing better heart rate has also improved no more heart block noted. Remains in atrial fibrillation with slow ventricle response Medications: Reviewed: Yes Vitals/I&O/Wt Last Vital Signs Temp 98.2 F 02/15/20 04:00 Pulse 67 02/15/20 08:36 Resp 17 02/15/20 08:36 BP 132/66 02/15/20 08:36 Pulse Ox 95 02/15/20 08:36 02/15/20 02/15/20 02/15/20 06:59 14:59 22:59 Intake Total 720 / 720 Output Total 2800 / 5301 875 / 875 Balance -2800 / -4821 -155 / -155 Weight last 48 hrs Weight 299 lb Weight 300 lb Physical Exam Narrative: EXAM NARRATIVE: GENERAL: Patient is alert, awake and oriented x3. NECK: No jugular vein distension. HEENT: No cyanosis. No icterus. No pallor. HEART: Irregular S1 and S2. No murmur, rub or gallop. LUNGS: Clear to auscultate bilaterally. ABDOMEN: Soft, nontender and nondistended. Positive bowel. Abdominal wall edema sounds. No guarding, rebound or tenderness. CENTRAL NERVOUS SYSTEM: Grossly nonfocal. EXTREMITIES: Lower extremities with 1+ edema bilaterally. Data : 02/15/20 04:20 02/15/20 04:20 A&P Assessment and plan (1) Atrial fibrillation: Patient has new onset of atrial fibrillation patient has slow ventricle response. Will discontinue beta-andreea. Continue to monitor. Electrolyte are in balance. Status: Acute Qualifiers: Atrial fibrillation type: paroxysmal Qualified Code(s): I48.0 - Paroxysmal atrial fibrillation (2) Congestive heart failure: Patient has diastolic decompensated heart failure continue IV Lasix 40 mg twice daily and 20 mg of potassium twice a day for Status: Acute Qualifiers: Heart failure chronicity: acute Heart failure type: unspecified Qualified Code(s): I50.9 - Heart failure, unspecified (3) Bradycardia: We have discontinued metoprolol heart rate has slightly improved patient is getting diuresed for diastolic heart failure hopefully with somewhat improvement in hypoxia he will also improve heart rate fierro. So far we will continue to monitor him. Status: Acute (4) Atherosclerotic heart disease of [place] coronary artery without angina pectoris: At some point we will rule out ischemia by outpatient stress test. We will add isosorbide mononitrate to the regimen beta-andreea has been taken off due to bradycardia. Continue aspirin statin Status: Acute Qualifiers: [place] vs. transplanted heart: [place] heart Qualified Code(s): I25.10 - Atherosclerotic heart disease of [place] coronary artery without angina pectoris (5) Type 2 diabetes mellitus: As per medicine. Status: Acute Qualifiers: Diabetes mellitus longterm insulin use: without longterm use Diabetes mellitus complication status: with hyperglycemia Qualified Code(s): E11.65 - Type 2 diabetes mellitus with hyperglycemia (6) Hypertension: Add TELMA inhibitor. 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
[2020-02-15] MEDS: enoxaparin 40 mg/0.4 mL Syringe SUBCUT (18:13)
[2020-02-15] MEDS: isosorbide mononitrate ER 30 mg Tablet PO (18:13)
[2020-02-15 19:00] VITALS: BP 135/82; PULSE 65; RESP 21; O2SAT 91
[2020-02-15 20:00] VITALS: BP 122/73; PULSE 66; RESP 24; TEMP 36.8; O2SAT 90
[2020-02-15 20:34] LABS: Glucose Point of Care 164 mg/dL (70-110)
[2020-02-15] MEDS: diphenhydrAMINE 50 mg Capsule PO (21:09)
[2020-02-15] MEDS: atorvastatin 40 mg Tablet 20 MG PO (21:09)
[2020-02-15] MEDS: zolpidem 5 mg Tablet PO (22:40)
[2020-02-16] VITALS: BP 126/47; PULSE 70; RESP 16; TEMP 36.3; O2SAT 90
[2020-02-16 03:34] VITALS: BP 129/75; PULSE 74; RESP 14; O2SAT 94
--- NOTE | 2020-02-16 03:35 | PC.NURSE ---
Patient has decreased SpO2 to 86-88% during sleep. Increased O2 to 3L and SpO2 increased to 94% during sleep.
[2020-02-16 04:42] LABS: Basophils % 0.3 %; Eosinophils # 0.1 10^3/uL (0.0-0.8); Eosinophils % 1.4 %; Hematocrit 43.5 % (42.0-52.0); Hemoglobin 14.2 g/dL (11.7-16.6); Lymphocytes # 1.3 10^3/uL (0.8-4.8); Lymphocytes % 19.7 %; Mean Corpuscular HGB Conc 32.6 g/dL (30.0-36.0); Mean Corpuscular Hemoglobin 31.3 pg (28.0-34.0); Mean Platelet Volume 9.6 fL (7.4-10.4); Monocytes # 0.5 10^3/uL (0.2-0.9); Monocytes % 7.6 %; Neutrophils # 4.58 10^3/uL (1.8-7.7); Neutrophils % 70.5 %; Nucleated Red Blood Cells % 0 %; Platelet Count 126 10^3/cmm (130-400); Red Blood Count 4.53 10^6/uL (4.1-5.3); Red Cell Distribution Width 13.9 % (12.1-15.1); White Blood Count 6.5 10^3/uL (4.0-10.0)
[2020-02-16 04:59] LABS: Alanine Aminotransferase 33 U/L (0-41); Albumin Level 4.6 g/dL (3.5-5.2); Alkaline Phosphatase 59 IU/L (40-130); Aspartate Amino Transferase 29 U/L (0-40); Blood Urea Nitrogen 21 mg/dL (8-23); Calcium 9.5 mg/dL (8.5-10.5); Carbon Dioxide 29 mmol/L (22-29); Chloride 99 mmol/L (98-107); Creatinine Clr Calc Pharmacy 95.2091; Globulin 2.5 g/dL (1.3-4.6); Glucose 139 mg/dL (65-115); Magnesium 2.3 mg/dL (1.7-2.3); Osmolality Calculated 287 mOsm/kg (285-295); Sodium 139 mmol/L (136-145); Total Bilirubin 1.8 mg/dL (0.15-1.2); Total Protein 7.1 g/dL (6.6-8.7)
[2020-02-16] MEDS: FUROsemide 10 mg/mL SDV 4mL 40 MG IVP (05:25)
[2020-02-16 06:48] LABS: Glucose Point of Care 166 mg/dL (70-110)
[2020-02-16 07:01] VITALS: BP 111/78; PULSE 68; RESP 19; TEMP 36.6; O2SAT 93
[2020-02-16] MEDS: potassium chloride oral liq 20 mEq/15 mL UDC PO (09:32)
[2020-02-16] MEDS: isosorbide mononitrate ER 30 mg Tablet PO (09:34)
[2020-02-16] MEDS: lisinopril 2.5 mg Tablet PO (09:35)
[2020-02-16 10:40] VITALS: BP 102/72; PULSE 68; RESP 17; TEMP 36.6; O2SAT 94
[2020-02-16 11:03] LABS: Glucose Point of Care 187 mg/dL (70-110)
--- NOTE | 2020-02-16 12:29 | P.PN_ITS ---
Subjective Subjective: Interval history: Patient feels well denies any complaints. Patel remains in atrial fibrillation with controlled ventricular response. -Denies having any chest pain or shortness of breath with ambulation. Overall he feels well. Medications: Reviewed: Yes Medication Review Details: Current Medications Acetaminophen (Tylenol) 650 mg PO Q6H PRN PRN Reason: MILD PAIN Last Admin: 02/15/20 11:00 Dose: 650 mg Documented by: Atorvastatin Calcium (Lipitor) 20 mg PO BEDTIME [facility] Last Admin: 02/15/20 21:09 Dose: 20 mg Documented by: Bisacodyl (Dulcolax) 10 mg PO DAILY PRN PRN Reason: CONSTIPATION Diphenhydramine HCl (Benadryl) 50 mg PO BEDTIME PRN PRN Reason: SLEEP Last Admin: 02/15/20 21:09 Dose: 50 mg Documented by: Enoxaparin Sodium (Lovenox) 40 mg SUBCUT Q24H [facility] Last Admin: 02/15/20 18:13 Dose: 40 mg Documented by: Furosemide (Lasix) 40 mg IVP Q12H [facility] Last Admin: 02/16/20 05:25 Dose: 40 mg Documented by: Isosorbide Mononitrate (Imdur) 30 mg PO DAILY [facility] Last Admin: 02/16/20 09:34 Dose: 30 mg Documented by: Lisinopril (Prinivil) 2.5 mg PO DAILY [facility] Last Admin: 02/16/20 09:35 Dose: 2.5 mg Documented by: Ondansetron HCl (Zofran) 4 mg IVP Q6H PRN PRN Reason: NAUSEA AND VOMITING Potassium Chloride (Potassium Chloride Oral Liquid) 20 meq PO BID [facility] Last Admin: 02/16/20 09:32 Dose: 20 meq Documented by: Zolpidem Tartrate (Ambien) 5 mg PO BEDTIME PRN PRN Reason: INSOMNIA Last Admin: 02/15/20 22:40 Dose: 5 mg Documented by: Vitals/I&O/Wt Last Vital Signs Temp 97.8 F 02/16/20 10:40 Pulse 68 02/16/20 10:40 Resp 17 02/16/20 10:40 BP 102/72 02/16/20 10:40 Pulse Ox 94 02/16/20 10:40 02/15/20 02/16/20 02/16/20 22:59 06:59 14:59 Intake Total 600 / 1320 600 / 600 Output Total 2250 / 3125 200 / 3325 1950 / 1950 Balance -1650 / -1805 -200 / -2004 -1350 / -1350 Weight last 48 hrs Weight 287 lb 6.4 oz Weight 299 lb Physical Exam Narrative: EXAM NARRATIVE: GENERAL: Obese man sitting comfortably in no acute distress HEENT: Extraocular movement intact. Pupils equal round reactive to light. NECK:No JVD appreciated, No carotid bruit. CARDIOVASCULAR SYSTEM: S1-S2 variable intensity, irregular, no murmur or ga llops. RESPIRATORY SYSTEM: Chest clear to auscultation. No wheezes rhonchi or rubs heard. No use of accessory muscles. ABDOMEN: Soft, nontender and nondistended. Normal bowel sounds present. EXTREMITIES: No cyanosis or clubbing. No edema. No signs of chronic venous insufficiency. 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 No focal neurological deficits. SKIN: Normal turgor and temperature. PSYCH: Normal insight and judgment. Data : 02/16/20 03:44 02/16/20 03:44 A&P Assessment and plan (1) Atrial fibrillation: Hold off on AV ayden blockers for now. -Patient remains in atrial fibrillation however is completely asymptomatic. -start on Eliquis 5 mg BID. -Follow-up with Dr. Aldrich/me in heart care services in 2 weeks. Status: Acute Qualifiers: Atrial fibrillation type: paroxysmal Qualified Code(s): I48.0 - Paroxysmal atrial fibrillation (2) Congestive heart failure: Patient has diastolic decompensated heart failure -Changed to Lasix 40 mg daily on discharge Status: Acute Qualifiers: Heart failure chronicity: acute Heart failure type: unspecified Qualified Code(s): I50.9 - Heart failure, unspecified (3) Bradycardia: Resolved after discontinuation of metoprolol. Status: Acute (4) Atherosclerotic heart disease of [place] coronary artery without angina pectoris: At some point we will rule out ischemia by outpatient stress test. - Continue aspirin, statin and Imdur. -Last stress test 2 years back was normal. Status: Acute Qualifiers: [place] vs. transplanted heart: [place] heart Qualified Code(s): I25.10 - Atherosclerotic heart disease of [place] coronary artery without angina pectoris (5) Type 2 diabetes mellitus: As per medicine. 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 transplanted heart: [place] heart Type 2 diabetes mellitus E11.65 Diabetes mellitus termite treater helper insulin use: without termite treater helper use Diabetes mellitus complication status: with hyperglycemia Hypertension I10 Hypertension type: essential hypertension
[2020-02-16] MEDS: acetaminophen 325 mg Tablet 650 MG PO (13:22)
[2020-02-16] MEDS: apixaban 5 mg Tablet PO (13:36)
--- NOTE | 2020-02-16 13:48 | P.DS_ITS ---
Discharge Providers Date of Admission: 02/14/20 11:44 Date of Discharge: February 16, 2020 Attending Provider at Admission: Robert Duenas MD Attending Provider at Discharge: Robert Duenas MD Primary Care Provider: NOHELIA Patel Diagnoses at Discharge Discharge Diagnosis (1) Atrial fibrillation: Status: Acute Problem details: With slow ventricular response. Qualifiers: Atrial fibrillation type: paroxysmal Qualified Code(s): I48.0 - Paroxysmal atrial fibrillation (2) Congestive heart failure: Status: Acute Qualifiers: Heart failure chronicity: acute Heart failure type: unspecified Qualified Code(s): I50.9 - Heart failure, unspecified (3) Bradycardia: Status: Acute (4) Atherosclerotic heart disease of [place] coronary artery without angina pectoris: Status: Acute Qualifiers: [place] vs. 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 Diabetes mellitus complication status: with hyperglycemia Qualified Code(s): E11.65 - Type 2 diabetes mellitus with hyperglycemia (6) Hypertension: Status: Acute Qualifiers: Hypertension type: essential hypertension Qualified Code(s): I10 - Essential (primary) hypertension (7) Thrombocytopenia: Status: Acute (8) BPH with obstruction/lower urinary tract symptoms: Status: Acute Reason for Visit Reason for Visit: SOB Hospital Course Discharge Summary: Patient presented with shortness of breath and diagnosed with acute diastolic CHF exacerbation which possibly could be due to metoprolol induced bradycardia. Patient was in atrial fibrillation with slow ventricular response. He was diuresed and metoprolol was held with good improvement and this morning reports feeling much better and strong enough to be dismissed home. Patient was seen by Dr. Daley this morning and recommendation to be discharged without beta-andreea and have systemic Lexiscan in 2 weeks along with follow-up. Patient was started on Eliquis after risks and benefits of anticoagulation discussed at length. We will discontinue meloxicam and change full dose aspirin to baby aspirin to decrease chance of bleeding. Patient to immediately notify his doctor or present to ER if he develops signs and symptoms of bleeding. I will request repeat lab work in several days prior to primary care physician follow-up. His bradycardia completely resolved. He ambulates without difficulty. Had extensive discussion with patient regarding importance of fluid restriction in case if he notices bilateral lower extremity swelling and shortness of breath. Physical Exam Const: COMMON NORMALS: no acute distress and patient oriented x3 Resp: COMMON NORMALS: normal respiratory effort and clear to auscultation bilaterally AUSCULTATION: clear to auscultation bilaterally Cardio: RHYTHM: abnormal rhythm irregularly irregular OTHER: No lower extremity edema GI: COMMON NORMALS: Normal to inspection, nondistended, normoactive bowel sounds present, Soft to palpation and non-tender PALPATION: Yes Soft to palpation Neuro: COMMON NORMALS: patient oriented x3 and no focal motor deficits Discharge Data Data Completed and Pending: Completed Studies During Hospitalization Category Date Time Status CT angio chest PE protcl [id number] Stat Cat Scan 02/14/20 10:12 Completed XR chest 1V elio ble [id number] Stat Exams 02/14/20 10:12 Completed CV echo complete* [id number] Urgent Ultrasound 02/14/20 12:41 Completed US venous duplex lower extremity bi lat [CV venous Ultrasound 02/14/20 14:57 [place] [id number]] Urgent Pending at discharge Category Date Time Status Complete Blood Co unt w/Auto AM LABS Lab 02/17/20 04:00 Ordered Comprehensive Met abolic Panel AM LA BS Lab 02/17/20 04:00 Ordered Magnesium AM LABS Lab 02/17/20 04:00 Ordered Labs from last 24 hours 02/16/20 02/16/20 02/16/20 10:42 06:42 03:44 WBC RBC Hgb Hct MCV MCH MCHC RDW Plt Count MPV Neut % (Auto) Lymph % (Auto) [place] % (Auto) Eos % (Auto) Baso % (Auto) Neut # (Auto) Lymph # (Auto) [place] # (Auto) Eos # (Auto) Baso # (Auto) Nucleated RBC % (a uto) Nucleated RBCs # Sodium 139 Potassium 4.0 Chloride 99 Carbon Dioxide 29 Anion Gap 15.0 BUN 21 Creatinine 1.0 GFR Calculation Not Reportable Glucose 139 H POC Glucose 187 166 Calculated Osmolal ity 287 Calcium 9.5 Magnesium 2.3 Total Bilirubin 1.8 H AST 29 ALT 33 Alkaline Phosphata se 59 Total Protein 7.1 Albumin 4.6 Globulin 2.5 02/16/20 02/15/20 02/15/20 03:44 20:07 16:50 WBC 6.5 RBC 4.53 Hgb 14.2 Hct 43.5 MCV 96.0 H MCH 31.3 MCHC 32.6 RDW 13.9 Plt Count 126 L MPV 9.6 Neut % (Auto) 70.5 Lymph % (Auto) 19.7 [place] % (Auto) 7.6 Eos % (Auto) 1.4 Baso % (Auto) 0.3 Neut # (Auto) 4.58 Lymph # (Auto) 1.3 [place] # (Auto) 0.5 Eos # (Auto) 0.1 Baso # (Auto) 0.0 Nucleated RBC % (a uto) 0 Nucleated RBCs # 0.0 Sodium Potassium Chloride Carbon Dioxide Anion Gap BUN Creatinine GFR Calculation Glucose POC Glucose 164 121 Calculated Osmolal ity Calcium Magnesium Total Bilirubin AST ALT Alkaline Phosphata se Total Protein Albumin Globulin Vitals: Last Vital Signs Temp 97.8 F 02/16/20 10:40 Pulse 68 02/16/20 10:40 Resp 17 02/16/20 10:40 BP 102/72 02/16/20 10:40 Pulse Ox 94 02/16/20 10:40 Discharge Plan Discharge Patient Disposition: Home Condition: Fair Prescriptions: New Eliquis 5 mg Tablet 5 mg PO BID Qty: 60 RF: 0 aspirin [Adult Aspirin Regimen] 81 mg tablet,delayed release (DR/EC) 81 mg PO DAILY Qty: 30 RF: 0 isosorbide mononitrate 30 mg Tablet Extended Release 24 Hr 30 mg PO DAILY Qty: 30 RF: 0 lisinopril 2.5 mg Tablet 2.5 mg PO DAILY Qty: 30 RF: 0 atorvastatin 40 mg Tablet 20 mg PO BEDTIME Qty: 30 RF: 0 potassium chloride [Klor-Con] 20 mEq packet 20 meq PO DAILY Qty: 30 RF: 0 Continued oxybutynin chloride 5 mg tablet 5 mg PO BID Qty: 60 RF: 12 garlic 500 mg capsule 1,000 mg PO BID RF: 0 omega [id number] oil [Fish Oil] 1,000 mg (120 mg-180 mg) capsule 1 cap PO BID RF: 0 citalopram 20 mg tablet 20 mg PO DAILY RF: 0 metformin 850 mg tablet 850 mg PO BID RF: 0 glimepiride 2 mg tablet 2 mg PO DAILY RF: 0 finasteride 5 mg tablet 5 mg PO DAILY RF: 0 tamsulosin 0.4 mg capsule 0.8 mg PO DAILY RF: 0 vitamin E 1,000 unit Capsule 1,000 unit PO DAILY RF: 0 Vitamin B-12 1,000 mcg Tablet 1,000 mcg PO DAILY RF: 0 Pain Relief PM 25-500 mg Tablet 1 tab PO BEDTIME RF: 0 Claritin 10 mg Tablet 10 mg PO DAILY RF: 0 melatonin 10 mg Tablet 10 mg PO BEDTIME RF: 0 Weight Control 1 tab PO DAILY RF: 0 Discontinued losartan 100 mg tablet 100 mg PO DAILY RF: 0 atorvastatin 80 mg tablet 80 mg PO BEDTIME RF: 0 aspirin 325 mg tablet 325 mg PO DAILY RF: 0 amlodipine 5 mg tablet 5 mg PO DAILY RF: 0 meloxicam 15 mg tablet 15 mg PO DAILY RF: 0 metoprolol tartrate 50 mg tablet 50 mg PO BID RF: 0 Discharge Orders: Discharge Order (Routine); Ordered 02/16/20 Ordered By: Robert Duenas Other Ambulatory Orders: Complete Blood Count w/Auto (Routine) Timeframe: 20200220 Location: Determined by Patient Ordered By: Robert Duenas Comprehensive Metabolic Panel (Routine) Timeframe: 20200220 Facility: [facility] - Location: Lab - Main Lab Ordered By: Robert Duenas Sestamibi Stress Test Request (Routine) Timeframe: 2 Weeks Facility: [facility] - Location: Cardiac Diagnostic Laboratory Ordered By: Robert Duenas Referrals: Kristen Perez FNP [Primary Care Provider] - Elizabeth Daley MD [Physician] - 2 weeks Discharge Diet: Diabetic Discharge Activity: Increase activity as tolerated Activity Restrictions/Additional Instructions: Please call your doctor or present to emergency department if your condition worsens or you develop diarrhea, lightheadedness, fatigue or see blood in your stool or black stool. Please avoid any cuts bumps or falls since you are on blood thinner and at risk for bleeding. Please keep blood pressure and heart rate log 3 times daily to present to primary care physician for medication adjustment. Please note that you have lab work in several days prior to primary care physician follow-up to make sure your numbers are in good range. 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 transplanted heart: [place] heart Type 2 diabetes mellitus E11.65 Diabetes mellitus intermodal customer service insulin use: without intermodal customer service use Diabetes mellitus complication status: with hyperglycemia Hypertension I10 Hypertension type: essential hypertension Thrombocytopenia D69.6 BPH with obstruction/lower urinary tract symptoms N40.1; N13.8
[2020-02-16 14:36] VITALS: BP 102/72; BP 138/75; PULSE 68; PULSE 75; RESP 16; RESP 17; TEMP 36.6; TEMP 37.1; O2SAT 94; O2SAT 97
--- NOTE | 2020-02-16 17:12 | PC.NURSE ---
discharge instructions given and explained.pt and daughter verb understanding of instructions.discharged via w/c to exit at this time.
--- NOTE | 2020-02-20 15:10 | PC.SOCIAL ---
patient left message about stress test called [facility] in [facility] and they do not have order. Faxed order to her attention and left message for patient.
== END 2020-02-16 17:12 | disposition home or self-care (01) | DRG 189 ==
LOC: ER 13:16 → CSU 15:41
PROVIDERS: Family Medicine; Admitting Provider Internal Medicine; PCP Nurse Practitioner Family; Visit Provider Internal Medicine
DX: J96.91 Respiratory failure, unspecified with hypoxia (principal); I50.31 Acute diastolic (congestive) heart failure; I11.0 Hypertensive heart disease with heart failure; R00.1 Bradycardia, unspecified; I25.10 Atherosclerotic heart disease of native coronary artery without angina pectoris; E11.65 Type 2 diabetes mellitus with hyperglycemia; D69.6 Thrombocytopenia, unspecified; N40.1 Benign prostatic hyperplasia with lower urinary tract symptoms; R33.8 Other retention of urine; I48.91 Unspecified atrial fibrillation; Z79.84 Long term (current) use of oral hypoglycemic drugs; Z79.82 Long term (current) use of aspirin; E78.5 Hyperlipidemia, unspecified; Z89.022 Acquired absence of left finger(s); Z95.5 Presence of coronary angioplasty implant and graft
CPT/HCPCS: 12345; 36415; 36416; 71045; 71275; 80053; 81003; 82962; 83735; 83880; 84443; 84484; 85025; 93005; 93306; 93970; 96372; 96375; 99283; J1650; J1940; Q0163; Q9967

== ENCOUNTER 2020-02-29 09:09 | Outpatient (CLI) | payer MEDICARE, SELFPAY ==
--- NOTE | 2020-02-29 09:52 | ECG_ITS ---
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 Interpretive Statements NAME OF STUDY: LEXISCAN SESTAMIBI STRESS TEST INDICATION: Shortness of Breath PROCEDURE: At the baseline, the blood pressure was 139/73 mmHg, oxygen saturation 91% with a heart rate of 61 bpm. The electrocardiogram showed atrial fibrillation, normal axis and nonspecific ST T wave abnormality. The Lexiscan was infused over a period of 20 seconds. A total of 0.4 milligrams of Lexiscan was infused. The stress phase was continued for a total of 5 minutes. Heart rate at the end of the stress phase was 80 bpm, oxygen saturation 94% with a blood pressure of 126/62 mm Hg. The EKG at the peak infusion revealed atrial fibrillation with controlled ventricular response. No significant ST-T wave changes. Sestamibi was injected 20 seconds after the Lexiscan infusion. Blood pressure at the end of the recovery phase was 126/65 mmHg, oxygen saturation 93% with a heart rate of 69 beats per minute. CONCLUSION: 1. No significant EKG changes with the LexiScan infusion. 2. No LexiScan induced chest pain or cardiac arrhythmia. 3. Normal blood pressure and heart rate response. 4. Sestamibi/sestamibi perfusion scan pending; see separate report. Electronically Signed On 03-01-2020 13:41:42 CDT by Elizabeth Daley M.D. [email or web address]
--- NOTE | 2020-02-29 09:53 | NMCV_ITS ---
NM jamee perf SPECT r/s* [id number] Anuj Pulliam Age: 74 Gender: M : 1945 Exam Date: 02/29/2020 09:53 Ordering Phys: Robert Duenas MD Technologist: KAREN Crenshaw Exam Location: [facility] Indications: NEW ONSET AFIB STRESS TEST Please see separate stress test report in [facility] for full findings IMAGE PROTOCOL Rest/Stress 1 Lexiscan Day Radiopharmaceutical Dose (mCi) Administration Site Administered by Rest: Tc-99m 10.8 IV KAREN Salazar Sestamibi Stress:Tc-99m 32.6 IV KAREN Salazar Sestamibi Rest: 29-Feb-2020 60 Discovery 630 Stress: 29-Feb-2020 30 Discovery 630 0.4mg Lexiscan. Images obtained in supine and prone position. SPECT RESULTS Technical Quality: Excellent Raw Data Analysis: Normal Image Corrections: No attenuation or motion correction applied Summed Stress Score: 2 Summed Rest Score: 0 Summed Difference Score: 2 PERFUSION FINDINGS SPECT images demonstrate homogeneous tracer distribution throughout the myocardium. FUNCTIONAL RESULTS (calculated via Gated SPECT) Stress Image LV EF (%): 67 Stress EDV (mL):151 TID: 0.96 Stress ESV (mL):50 FUNCTIONAL FINDINGS: There is normal left ventricular systolic function. IMPRESSIONS 1. Normal myocardial perfusion imaging 2. LV systolic function is normal 3. LV EF is 67% 4. EKG portion of stress test is interpreted separately please see report. Nikita Acevedo MD (Electronically Signed) Final Date: 29 February 2020 17:02 S
[2020-02-29 09:54] VITALS: BMI 37.8
[2020-02-29 11:20] VITALS: BP 121/52; PULSE 79
[2020-02-29] MEDS: regadenoson 0.4 Mg/5 ml Syringe IVP (11:20)
== END 2020-02-29 09:10 | disposition home or self-care (01) ==
LOC: RAD 09:12
PROVIDERS: PCP Nurse Practitioner Family; Visit Provider Internal Medicine
DX: I48.91 Unspecified atrial fibrillation (principal); R06.02 Shortness of breath
CPT/HCPCS: 78452; 93017; A9500; J2785

== ENCOUNTER → 2020-03-12 15:01 | Outpatient (BNVA) | payer MEDICARE, SELFPAY | PROVIDERS: PCP Nurse Practitioner Family; Visit Provider Internal Medicine Cardiovascular Disease | DX: R06.02 Shortness of breath (principal); I50.33 Acute on chronic diastolic (congestive) heart failure; I25.10 Atherosclerotic heart disease of native coronary artery without angina pectoris; I49.9 Cardiac arrhythmia, unspecified; I48.0 Paroxysmal atrial fibrillation; E78.5 Hyperlipidemia, unspecified; I11.0 Hypertensive heart disease with heart failure; E11.65 Type 2 diabetes mellitus with hyperglycemia | CPT/HCPCS: 80048; 83880 ==

== ENCOUNTER → 2020-03-25 15:25 | Outpatient (BNVA) | payer MEDICARE, SELFPAY | PROVIDERS: PCP Nurse Practitioner Family; Visit Provider Internal Medicine Cardiovascular Disease | DX: I50.9 Heart failure, unspecified (principal); I25.10 Atherosclerotic heart disease of native coronary artery without angina pectoris | CPT/HCPCS: 80048; 83880 ==

== ENCOUNTER → 2020-07-02 16:02 | Outpatient (BNVA) | payer MEDICARE, SELFPAY | PROVIDERS: PCP Nurse Practitioner Family; Visit Provider Internal Medicine Cardiovascular Disease | DX: I50.33 Acute on chronic diastolic (congestive) heart failure (principal); R06.02 Shortness of breath; I25.10 Atherosclerotic heart disease of native coronary artery without angina pectoris | CPT/HCPCS: 80048; 83880 ==

== ENCOUNTER → 2020-07-09 10:25 | Outpatient (BNVA) | payer MEDICARE, SELFPAY | PROVIDERS: PCP Nurse Practitioner Family; Visit Provider Urology | DX: N13.8 Other obstructive and reflux uropathy (principal); N40.1 Benign prostatic hyperplasia with lower urinary tract symptoms; R97.20 Elevated prostate specific antigen [PSA] | CPT/HCPCS: 81003; 84153 ==

== ENCOUNTER 2020-07-26 13:18 | Emergency (ER) | payer MEDICARE, SELFPAY ==
[2020-07-26 13:28] VITALS: BP 138/76; PULSE 86; RESP 24; TEMP 37.3; O2SAT 95; BMI 36.3
--- NOTE | 2020-07-26 14:24 | ED_ITS ---
HPI - COVID General: Chief Complaint: COVID symptoms Stated Complaint: COVID+/SOB Time Seen by Provider: 07/26/20 14:12 Source: patient Mode of arrival: wheelchair Triage information: Has fever, cough or shortness of breath . No known COVID + exposure last 14 days History of Present Illness: HPI Narrative: 74-year-old male recently diagnosed with COVID-19 approximately 3 to 4 days ago presents emergency room chief complaint of generalized malaise fatigue shortness of breath appetite reduction patient reports sick and ill contacts at home. Patient reports several episodes of nonbloody diarrhea. He is currently on home oxygen. He reports a prior history of cardiac disease including quadruple bypass approximately 20 years ago. Patient reports he has no chest pain with his shortness of breath and reports no palpitations. MD complaint: known COVID positive Prior covid testing: yes, results known Prior testing date: 07/22/20 COVID 19 common symptoms: positive fever(s), chills, cough, non-productive cough, productive cough, dyspnea, fatigue, body aches, nausea and diarrhea; negative headache(s) COVID 19 other sytmptoms: positive requiring oxygen; negative chest pain Onset (ago): day(s) (4) Pertinent comorbid conditions: hypertension and heart disease COVID Results: No Data to Display Review of Systems General: Reports: 10 or more systems reviewed and unremarkable except in HPI and below Const: Reports: fever(s), chills, body aches, change in appetite, fatigue and malaise Eyes: Denies: change in vision or blurry vision Card: Denies: chest pain or palpitations Resp: Reports: dyspnea, productive cough and non-productive cough GI: Reports: nausea and diarrhea : Denies: flank pain Musc: Denies: extremity pain or extremity swelling Skin/Breast: Denies: rash or pruritus Neuro: Denies: headache(s) Psych: Denies: anxiety or depression Buddy/Lymph: Denies: easy bleeding All/Imm: Denies: urticaria, throat swelling or facial swelling PFS ED PFSH: Medical History (Updated 07/26/20 @ 16:52 by Tristan Link) Atherosclerotic heart disease of [place] coronary artery without angina pectoris Bilateral hydrocele BPH with obstruction/lower urinary tract symptoms Dyslipidemia (high LDL; low HDL) Elevated PSA History of amputation of finger digit left hand Hypertension Prostatic hemorrhage Type 2 diabetes mellitus Urgency incontinence Ventricular arrhythmia Surgical History History of appendectomy History of arthroscopy of shoulder History of bilateral cataract extraction History of carpal tunnel release of both wrists History of cholecystectomy History of coronary artery bypass graft x 1 History of prostate biopsy History of prostate surgery History of shoulder surgery bilateral History of sinus surgery History of spinal surgery History of transurethral resection of prostate Family History Mother , at age 58 CAD (coronary artery disease) Father , at age 82 Lung cancer Prostate cancer Social History Smoking and tobacco status: never smoked Alcohol intake: never Marital status: / Current occupational status: retired History of recent travel: No Physical Exam Narrative: EXAM NARRATIVE: Patient appears ill appearing nontoxic mild tachypnea appreciated on exam with mild temperature elevation no obvious tachycardia apparent Const: COMMON NORMALS: no acute distress, patient oriented x3 and healthy appearing GENERAL APPEARANCE: cooperative; not lethargic ORIENTATION/CONSCIOUSNESS: Yes awake, Yes oriented to person, Yes oriented to place and Yes oriented to time; not confused and not lethargic HENMT: COMMON NORMALS: normocephalic and atraumatic HEAD & SCALP: normocephalic and atraumatic Eye: COMMON NORMALS: Equal, round and reactive pupils present and EOMs intact bilaterally PUPIL: Yes Equal, round and reactive pupils present Neck/C-Spine: COMMON NORMALS: full ROM, supple and no JVD Lymph: LYMPHATIC: no lymphadenopathy noted Chest: COMMONS NORMALS: normal inspection of the chest and normal palpation of entire chest wall Resp: COMMON NORMALS: normal respiratory effort, No retractions and clear to auscultation bilaterally EFFORT & INSPECTION: Yes able to speak in complete sentences and Yes symmetric chest movement AUSCULTATION: clear to auscultation bilaterally and diminished lung sounds (Diminished breath sounds appreciated bilaterally with no obvious wheezing c) Cardio: COMMON NORMALS: no JVD, regular rate, regular rhythm, S1 normal heart sound present and S2 normal heart sound present RATE: regular rate RHYTHM: regular rhythm HEART SOUNDS: S1 normal heart sound present, S2 normal heart sound present, no click, no murmurs and no rubs GI: COMMON NORMALS: Normal to inspection, nondistended, normoactive bowel sounds present, Soft to palpation and non-tender INSPECTION: Yes normal to inspection PALPATION: Yes Soft to palpation : COMMON NORMALS: Yes no CVA tenderness BLADDER/KIDNEY EXAM: Yes no CVA tenderness Back/Pelvis: COMMON NORMALS: no CVA tenderness Extremity: COMMON NORMALS: normal to inspection and full ROM GENERAL: Yes normal exam except as noted Neuro: COMMON NORMALS: patient oriented x3, CN's II-XII intact bilaterally, moves all extremities and no focal motor deficits SENSORIUM/ORIENTATION: Yes oriented to person, Yes oriented to place, Yes oriented to time and No lethargic Psych: COMMON NORMALS: mental status grossly normal, Normal thought process present, cooperative and normal affect MOOD & AFFECT: Yes depressed mood and Yes Flat affect present THOUGHT PROCESS: Normal thought process present Skin: COMMON NORMALS: no rashes or lesions noted GENERAL SKIN EXAM: no rashes or lesions noted Course Vital Signs: Vital signs: Vital Signs Temperature 99.1 F 07/26/20 13:28 Pulse Rate 81 07/26/20 16:07 Respiratory Rate 80 H 07/26/20 16:39 Blood Pressure 128/57 07/26/20 16:39 Pulse Oximetry 95 07/26/20 16:39 MDM - COVID MDM Narrative: Medical decision making narrative: Due to the patient's symptoms and condition IV is established IV fluids provided for hydration Covid lab work and imaging was obtained due to patient's significant cardiac history and lung issues will be obtaining a chest x-ray and additional lab work. Lab work came back reassuring patient's oxygen saturations remained above 92% throughout his emergency department will be started on additional medications for his symptoms I did advise he follow-up with primary care doctor and 4 to 5 days which was instructed to return in the interim if any of his symptoms persist or worsen. Differential Diagnosis: Differential diagnosis: Likely COVID 19, other viral infection, bacterial infection and CHF exacerbation Medical Records: Attestation: I reviewed the patient's medical records. Lab Data: Labs: Lab Results 07/26/20 07/26/20 07/26/20 Range/Units 14:55 14:55 14:55 WBC 5.3 (4.0-10.0) 10^3/ uL RBC 4.80 (4.1-5.3) 10^6/u L Hgb 15.1 (11.7-16.6) g/dL Hct 44.3 (42.0-52.0) % MCV 92.3 (80-94) fL MCH 31.5 (28.0-34.0) pg MCHC 34.1 (30.0-36.0) g/dL RDW 13.6 (12.1-15.1) % Plt Count 148 (130-400) 10^3/c mm MPV 8.6 (7.4-10.4) fL Neut % (Auto) 73.7 % Lymph % (Auto) 12.0 % [place] % (Auto) 11.6 % Eos % (Auto) 0.0 % Baso % (Auto) 0.2 % Neut # (Auto) 3.89 (1.8-7.7) 10^3/u L Lymph # (Auto) 0.6 L (0.8-4.8) 10^3/u L [place] # (Auto) 0.6 (0.2-0.9) 10^3/u L Eos # (Auto) 0.0 (0.0-0.8) 10^3/u L Baso # (Auto) 0.0 (0.0-0.1) 10^3/u L Nucleated RBC % (a uto) 0 % Nucleated RBCs # 0.0 /100WBC Sodium 133 L (136-145) mmol/L Potassium 4.6 (3.5-5.1) mmol/L Chloride 99 (98-107) mmol/L Carbon Dioxide 20 L (22-29) mmol/L Anion Gap 18.6 (5-19) BUN 26 H (8-23) mg/dL Creatinine 1.0 (0.7-1.2) mg/dL GFR Calculation Not Reportable Glucose 119 H (65-115) mg/dL Calculated Osmolal ity 282 L (285-295) mOsm/k g Lactic Acid 2.1 (0.5-2.2) mmol/L Calcium 9.5 (8.5-10.5) mg/dL Total Bilirubin 0.6 (0.15-1.2) mg/dL AST 29 (0-40) U/L ALT 29 (0-41) U/L Alkaline Phosphata se 72 (40-130) IU/L Lactate Dehydrogen ase 214 (135-225) U/L Troponin T Gen 5 n g/L (0-15) ng/L C-Reactive Protein 8.7 H (0.0-4.9) mg/L NT-Pro-B Natriuret Pep 300 H (0-125) pg/mL Total Protein 6.7 (6.6-8.7) g/dL Albumin 4.5 (3.5-5.2) g/dL Globulin 2.2 (1.3-4.6) g/dL Procalcitonin 0.10 (0-0.5) ng/mL 07/26/20 Range/Units 14:55 WBC (4.0-10.0) 10^3/ uL RBC (4.1-5.3) 10^6/u L Hgb (11.7-16.6) g/dL Hct (42.0-52.0) % MCV (80-94) fL MCH (28.0-34.0) pg MCHC (30.0-36.0) g/dL RDW (12.1-15.1) % Plt Count (130-400) 10^3/c mm MPV (7.4-10.4) fL Neut % (Auto) % Lymph % (Auto) % [place] % (Auto) % Eos % (Auto) % Baso % (Auto) % Neut # (Auto) (1.8-7.7) 10^3/u L Lymph # (Auto) (0.8-4.8) 10^3/u L [place] # (Auto) (0.2-0.9) 10^3/u L Eos # (Auto) (0.0-0.8) 10^3/u L Baso # (Auto) (0.0-0.1) 10^3/u L Nucleated RBC % (a uto) % Nucleated RBCs # /100WBC Sodium (136-145) mmol/L Potassium (3.5-5.1) mmol/L Chloride (98-107) mmol/L Carbon Dioxide (22-29) mmol/L Anion Gap (5-19) BUN (8-23) mg/dL Creatinine (0.7-1.2) mg/dL GFR Calculation Glucose (65-115) mg/dL Calculated Osmolal ity (285-295) mOsm/k g Lactic Acid (0.5-2.2) mmol/L Calcium (8.5-10.5) mg/dL Total Bilirubin (0.15-1.2) mg/dL AST (0-40) U/L ALT (0-41) U/L Alkaline Phosphata se (40-130) IU/L Lactate Dehydrogen ase (135-225) U/L Troponin T Gen 5 n g/L 16 H (0-15) ng/L C-Reactive Protein (0.0-4.9) mg/L NT-Pro-B Natriuret Pep (0-125) pg/mL Total Protein (6.6-8.7) g/dL Albumin (3.5-5.2) g/dL Globulin (1.3-4.6) g/dL Procalcitonin (0-0.5) ng/mL COVID Results: No Data to Display Discharge Plan Discharge Patient Disposition: Home Clinical Impression: Acute bronchitis due to 2019 novel coronavirus, Insomnia, Diarrhea Condition: Stable Prescriptions: New Zofran 4 mg tablet 4 mg PO Q6H PRN (Reason: nausea and vomiting) Qty: 20 RF: 0 Lomotil 2.5-0.025 mg tablet 1 tab PO Q6H PRN (Reason: diarrhea) Qty: 7 RF: 0 hydroxyzine HCl 50 mg tablet 50 mg PO BID PRN (Reason: nausea and vomiting) Qty: 20 RF: 0 Ventolin HFA 90 mcg/actuation HFA aerosol inhaler 1 inh inhalation Q6H PRN (Reason: shortness of breath or wheezing) Qty: 8.5 RF: 0 prednisone 20 mg tablet 20 mg PO BID 7 Days Qty: 14 RF: 0 No Action oxybutynin chloride 5 mg tablet 5 mg PO BID Qty: 60 RF: 12 furosemide [Lasix] 40 mg tablet 40 mg PO DAILY 30 Days Qty: 30 RF: 5 lisinopril 5 mg tablet 5 mg PO DAILY 30 Days Qty: 30 RF: 5 garlic 500 mg capsule 1,000 mg PO BID RF: 0 omega 3-szg-pje-fish oil [Fish Oil] 1,000 mg (120 mg-180 mg) capsule 1 cap PO BID RF: 0 citalopram 20 mg tablet 20 mg PO DAILY RF: 0 metformin 850 mg tablet 850 mg PO BID RF: 0 glimepiride 2 mg tablet 2 mg PO DAILY RF: 0 finasteride 5 mg tablet 5 mg PO DAILY RF: 0 tamsulosin 0.4 mg capsule 0.4 mg PO DAILY RF: 0 potassium chloride 20 mEq tablet extended release 20 meq PO BID Qty: 60 RF: 5 isosorbide mononitrate 30 mg tablet extended release 24 hr 30 mg PO DAILY Qty: 90 RF: 3 atorvastatin 40 mg tablet 20 mg PO BEDTIME Qty: 90 RF: 3 Eliquis 5 mg tablet 5 mg PO BID Qty: 60 RF: 5 vitamin E 1,000 unit Capsule 1,000 unit PO DAILY RF: 0 Vitamin B-12 1,000 mcg Tablet 1,000 mcg PO DAILY RF: 0 Pain Relief PM 25-500 mg Tablet 1 tab PO BEDTIME RF: 0 melatonin 10 mg Tablet 10 mg PO BEDTIME RF: 0 Discharge Orders: Discharge ED (Routine); Ordered 07/26/20 Ordered By: Tristan Link Referrals: Kristen Perez FNP [Primary Care Provider] - 4-7 days Patient Instructions: Acute Bronchitis (ED), Acute Diarrhea (ED) Activity Restrictions/Additional Instructions: Follow-up follow-up with your primary care doctor in 3 to 5 days take medications as prescribed and return to the ER in the interim if any of your symptoms are worse Coding Level of Care Code ED Manager Drug Safety for Kim Fwromeo Exam Comprehensive
--- NOTE | 2020-07-26 14:36 | XRR_ITS ---
PROCEDURE INFORMATION: Exam: XR Chest, 2 Views Exam date and time: 07/26/2020 2:39 PM Age: 74 years old Clinical indication: Shortness of breath; Additional info: SOB TECHNIQUE: Imaging protocol: XR of the chest Views: 2 views. COMPARISON: CR XR chest 1V portable [id number] 02/14/2020 10:33 AM FINDINGS: Lungs: Unremarkable. No consolidation. Pleural space: Unremarkable. No pleural effusion. No pneumothorax. Heart/Mediastinum: Unremarkable. No cardiomegaly. Bones/joints: There has been a sternotomy.There is no evidence for acute fracture or malalignment. XR/XR chest 2V* [id number] IMPRESSION: No acute findings.
[2020-07-26 14:58] VITALS: BP 112/57; PULSE 87; RESP 22; O2SAT 96; O2SAT 97
[2020-07-26 15:04] LABS: Basophils % 0.2 %; Hematocrit 44.3 % (42.0-52.0); Hemoglobin 15.1 g/dL (11.7-16.6); Lymphocytes # 0.6 10^3/uL (0.8-4.8); Mean Corpuscular HGB Conc 34.1 g/dL (30.0-36.0); Mean Corpuscular Hemoglobin 31.5 pg (28.0-34.0); Mean Corpuscular Volume 92.3 fL (80-94); Mean Platelet Volume 8.6 fL (7.4-10.4); Monocytes # 0.6 10^3/uL (0.2-0.9); Monocytes % 11.6 %; Neutrophils # 3.89 10^3/uL (1.8-7.7); Neutrophils % 73.7 %; Nucleated Red Blood Cells % 0 %; Platelet Count 148 10^3/cmm (130-400); Red Cell Distribution Width 13.6 % (12.1-15.1); White Blood Count 5.3 10^3/uL (4.0-10.0)
[2020-07-26] MEDS: dexamethasone 4 mg/mL INJ 6 MG IVP (15:13)
[2020-07-26] MEDS: ondansetron 2 mg/ML SDV 2 mL 4 MG IV (15:14)
[2020-07-26 15:20] LABS: Lactic Sepsis W/Reflex 2.1 mmol/L (0.5-2.2)
[2020-07-26 15:22] LABS: Troponin T (5th) Once 16 ng/L (0-15)
[2020-07-26 15:36] LABS: NT Pro B Type Natriuretic Pept 300 pg/mL (0-125)
[2020-07-26 15:48] LABS: Alanine Aminotransferase 29 U/L (0-41); Albumin Level 4.5 g/dL (3.5-5.2); Alkaline Phosphatase 72 IU/L (40-130); Anion Gap 18.6 (5-19); Aspartate Amino Transferase 29 U/L (0-40); Blood Urea Nitrogen 26 mg/dL (8-23); C Reactive Protein 8.7 mg/L (0.0-4.9); Calcium 9.5 mg/dL (8.5-10.5); Carbon Dioxide 20 mmol/L (22-29); Chloride 99 mmol/L (98-107); Globulin 2.2 g/dL (1.3-4.6); Glucose 119 mg/dL (65-115); Lactate Dehydrogenase 214 U/L (135-225); Osmolality Calculated 282 mOsm/kg (285-295); Potassium 4.6 mmol/L (3.5-5.1); Sodium 133 mmol/L (136-145); Total Bilirubin 0.6 mg/dL (0.15-1.2); Total Protein 6.7 g/dL (6.6-8.7)
[2020-07-26] MEDS: albuterol 8 gm MDI 2 PUFF INHALATION (16:01)
[2020-07-26 16:02] VITALS: PULSE 88; RESP 22; O2SAT 96
[2020-07-26 16:07] VITALS: PULSE 81
--- NOTE | 2020-07-26 16:14 | ECG_ITS ---
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 Measurements Intervals [place] Rate: 86 P: MT: QRS: 176 QRSD: 93 T: 191 QT: 390 QTc: 467 Interpretive Statements ATRIAL FIBRILLATION LEFT POSTERIOR FASCICULAR BLOCK [QRS AXIS > 109, INFERIOR Q] LATERAL MYOCARDIAL INFARCTION [40+ ms Q WAVE AND/OR ST/T of indeterminate age Compared to ECG 02/14/2020 16:28:08 Left posterior fascicular block now present Myocardial infarct finding now present ST (T wave) deviation no longer present Electronically Signed On 07-26-2020 17:50:29 DEVELOPMENT MGR by Nikita Acevedo M.D. [email or web address]
[2020-07-26] MEDS: sodium chloride 0.9% 1,000 ML 150 ML IV (16:33)
[2020-07-26 16:39] VITALS: BP 128/57; RESP 80; O2SAT 95
[2020-07-26 16:47] LABS: Reflex Lactate Order REFLEX LACTIC ORDERD
== END 2020-07-26 18:07 | disposition home or self-care (01) ==
PROVIDERS: Emergency Provider Emergency Medicine; PCP Nurse Practitioner Family
DX: U07.1 COVID-19 (principal); J20.8 Acute bronchitis due to other specified organisms; G47.00 Insomnia, unspecified; R19.7 Diarrhea, unspecified; Z79.01 Long term (current) use of anticoagulants; Z79.84 Long term (current) use of oral hypoglycemic drugs; E78.5 Hyperlipidemia, unspecified; I10 Essential (primary) hypertension; E11.9 Type 2 diabetes mellitus without complications
CPT/HCPCS: 12345; 71046; 80053; 83605; 83615; 83880; 84145; 84484; 85025; 86140; 93005; 94640; 96361; 96374; 96375; 99283; 99284; J1100; J2405; J3535; J7030

== ENCOUNTER 2020-07-29 16:32 | Emergency (ER) | payer MEDICARE, SELFPAY ==
--- NOTE | 2020-07-29 16:41 | XR_ITS ---
WS: [id number] Portable AP upright chest, 07/29/2020 Clinical Data: COVID + - Low O2 Comparison: Portable chest, 07/26/2020. Findings: There are bilateral patchy opacities throughout the lungs. No nodules or masses are seen. T here are no effusions. The heart is normal. Midline sternotomy sutures are present. There are orthope dic anchors in the left humeral head. XR/XR chest 1V portable [id number] Impression: Diffuse bilateral patchy opacities consistent with acute pneumonia.
[2020-07-29 16:59] VITALS: BP 105/66; PULSE 77; RESP 32; TEMP 36.4; O2SAT 94; BMI 36.3
--- NOTE | 2020-07-29 17:19 | ECG_ITS ---
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1945 Requested By: Bony Stanley I Order Number: [id number] Reading MD: ROCIO SNELL Measurements Intervals [place] Rate: P: SC: QRS: 0 QRSD: T: 0 QT: QTc: Interpretive Statements Atrial fibrillation with possible atrial pacemaker WARNING: DATA QUALITY MAY AFFECT INTERPRETATION Compared to ECG 07/26/2020 13:26:53 There is possible atrial pacemaker versus artifact Electronically Signed On 07-29-2020 19:56:47 CROWN PERFORATOR OPERATOR by ROCIO SNELL [id number]
== END 2020-07-29 20:01 | disposition left against medical advice (07) ==
PROVIDERS: Emergency Provider Emergency Medicine; PCP Nurse Practitioner Family
DX: Z53.21 Procedure and treatment not carried out due to patient leaving prior to being seen by health care provider (principal)
CPT/HCPCS: 71045; 93005; 99281